=== PATIENT | male | born 1945 | race Caucasian/White ===

== ENCOUNTER → 2023-09-13 11:05 | Outpatient (REF) | payer MEDICARE, OTHER, SELFPAY | LOC: MRI 3T 11:05 | PROVIDERS: ATTENDING PHYSICIAN Orthopaedic Surgery; FAMILY PHYSICIAN Internal Medicine | DX: M54.16 Radiculopathy, lumbar region (principal) | CPT/HCPCS: 72148 ==

== ENCOUNTER → 2023-10-06 17:16 | Outpatient (REF) | payer MEDICARE, OTHER, SELFPAY | LOC: RAD 17:16 | PROVIDERS: ATTENDING PHYSICIAN Orthopaedic Surgery; FAMILY PHYSICIAN Internal Medicine | DX: M25.552 Pain in left hip (principal); M79.605 Pain in left leg; M79.662 Pain in left lower leg | CPT/HCPCS: 93971 ==

== ENCOUNTER → 2023-11-30 09:29 | Outpatient (REF) | payer MEDICARE, OTHER, SELFPAY ==
[2023-11-30 12:16] LABS: % Basophils 0.6 % (0-2); % Eosinophils 8.7 % (0-6); % Immature Granulocytes 0.2 % (0-0.5); % Lymphocytes 22.5 % (20.5-51.1); % Monocytes 10.5 % (1.7-9.3); % Neutrophils 57.5 % (42.2-75.2); Absolute Eosinophils 0.4 10^3/uL (0-0.7); Absolute Lymphocytes 1.1 10^3/uL (1.2-3.4); Absolute Monocytes 0.5 10^3/uL (0.1-0.6); Absolute Neutrophils 2.8 10^3/uL (1.4-6.5); Hematocrit 37.6 % (39.0-52.0); Hemoglobin 12.6 g/dL (13.0-18.0); Mean Corp Hgb Conc. 33.5 g/dL (33.0-37.0); Mean Corpuscular Hgb 31.9 pg (27.0-31.0); Mean Corpuscular Volume 95.2 fL (80.0-94.0); Mean Platelet Volume 9.7 fL (7.4-10.4); Nucleated Red Blood Cells % 0 % (-); Platelet Count 148 10^3/uL (130-400); Red Blood Cell Count 3.95 10^6/uL (4.70-6.10); Red Cell Dist. Width 14.2 % (11.5-14.5); White Blood Cell Count 4.9 10^3/uL (4.8-10.8)
[2023-11-30 12:22] LABS: INR 0.99; PT 13.1 Sec (11.4-14.6)
[2023-11-30 12:41] LABS: ALT (SGPT) 32 U/L (0-50); AST (SGOT) 55 U/L (17-59); Albumin 4.1 g/dl (3.5-5.0); Alkaline Phosphatase 158 U/L (38-126); Blood Urea Nitrogen 29 mg/dl (9-20); Calcium 9.9 mg/dl (8.4-10.2); Carbon Dioxide 23 mmol/L (22-30); Chloride 104 mmol/L (98-107); Glucose 88 mg/dl (70-99); HDL Cholesterol 34 mg/dl; LDL Cholesterol, Calculated 58 mg/dl; Potassium 4.5 mmol/L (3.5-5.1); Sodium 139 mmol/L (135-145); Total Bilirubin 0.6 mg/dl (0.2-1.3); Total Cholesterol 134 mg/dl (50-199); Total Protein 6.4 g/dl (6.3-8.2); Triglyceride 212 mg/dl (10-149); Very Low Density Lipoprotein 42 mg/dl (0-30); eGFR 51.77
[2023-11-30 13:07] LABS: PSA, Total - Diagnostic 2.99 ng/ml (0.0-4.0)
[2023-11-30 23:41] LABS: IgA 207 mg/dl (70-400)
[2023-12-01 20:31] LABS: AFP Male/Tumor Marker 5.95 ng/ml
[2023-12-02 17:58] LABS: Endomysial IgA Antibody Titer <1:10 (<1:10)
== END ==
LOC: HWLAB 09:29
PROVIDERS: ATTENDING PHYSICIAN Internal Medicine Gastroenterology; FAMILY PHYSICIAN Internal Medicine
DX: K74.69 Other cirrhosis of liver (principal); K90.0 Celiac disease; I10 Essential (primary) hypertension; E78.2 Mixed hyperlipidemia; N40.0 Benign prostatic hyperplasia without lower urinary tract symptoms
CPT/HCPCS: 36415; 80053; 80061; 82105; 82784; 83516; 84153; 85025; 85610; 86231

== ENCOUNTER → 2024-01-20 14:05 | Outpatient (REF) | payer MEDICARE, OTHER, SELFPAY | LOC: PAVMRI 14:05 | PROVIDERS: ATTENDING PHYSICIAN Internal Medicine Gastroenterology; FAMILY PHYSICIAN Internal Medicine | DX: K74.69 Other cirrhosis of liver (principal) | CPT/HCPCS: 74183; A9575 ==

== ENCOUNTER 2024-01-22 14:09 | Inpatient (IN) | payer MEDICARE, OTHER, SELFPAY ==
[2024-01-22] VITALS (36 sets, daily range): BP systolic 90–191; BP diastolic 50–103; BMI 25.3; BMI 25.0
--- NOTE | 2024-01-22 08:29 | ED.GENMED ---
History of Present Illness
General
Chief Complaint: Chest Pain
Source: patient
Exam Limitations: none
Time Seen by Provider: 01/22/24 07:49
Nursing documentation reviewed up to this point in time: agreed with
History of Present Illness
History of Present Illness:
78-year-old male past medical history of heart disease status post multiple stents, remote history of PE 15 years ago presenting to the emergency department today with concerns of central chest pressure starting last night without significant
associated shortness of breath nausea vomiting diaphoresis. Slightly worse with exertion today. Denies any recent trauma surgery immobilization, leg swelling.
Past History
Past History
ED Past Medical History: CAD, HTN, Hypercholesterolemia and Other (BPH, osteoarthritis, pancreatitis, pulmonary embolism 2013)
ED Past Surgical History: Cardiac (Cardiac stents) and Other (Facial fracture surgery, spinal fusion in 1992, and 1994, cardiac catheterization with stent placement in August of 2011, hemorrhoid surgery); Negative Appendectomy or Bowel resection
Social History
Tobacco: Former smoker
Alcohol: Occasional
Drug: None
Personal:
Living: with family
Employment: Employed
Family History
Family History: Other (Noncontributory)
Review of Systems
Review of Systems
Allergies reviewed?: Yes
All Other Systems: ROS reviewed and negative except as documented in HPI and ROS
Phy Exam
Physical Exam
Physical Exam:
GENERAL: Alert , in no apparent distress
EYE: pupils equal and reactive
NECK: Supple, no significant adenopathy.
ENT: o/p clr, mmm.
CARDIAC: Regular rate and rhythm .
LUNGS: Clear breath sounds bilaterally, no acute respiratory distress, no wheezes/rales/rhonchi
ABDOMEN: Soft, without focal tenderness, no r/g, no cvat
NEUROLOGICAL: Alert and oriented, no focal neuro deficits
SKIN: Warm and dry, skin intact.
MUSCULOSKELETAL: No edema, well perfused.
PSYCH: Normal and appropriate interaction.
Scores
Heart Score for Chest Pain Patients
STEMI patient?: No
History: Slightly or Non-Suspicious
ECG: Normal
Age: </= 45 years
Risk Factors: No Risk Factors
Troponin: </= Normal Limit
Heart Score for Chest Pain Patients: 0
Heart Score Risk: 2.5% MACE over next 6 weeks
Course
Orders/Labs/Results
Orders:
Orders
01/22/24 07:29
Electrocardiogram (*1) Urgent
Reason for Study: Chest Pain
EKG- Treatment ONCE
01/22/24 08:04
CR Chest - 2 Views Urgent
Comment:
Reason For Exam: cp
01/22/24 08:23
Complete Blood Count/With Diff Urgent
Comprehensive Metabolic Panel Urgent
D-Dimer Urgent
Lipase Urgent
Magnesium Urgent
Troponin I Urgent
01/22/24 09:31
Aspirin 162 mg PO NOW STA
01/22/24 10:31
Electrocardiogram (*1) Urgent
Reason for Study: Chest Pain
EKG- Treatment ONCE
Troponin I Urgent
01/22/24 10:32
Nitroglycerin Sublingual [Nitrostat (Sublingual)] 0.4 mg SL [id number] PRN
01/22/24 12:30
Morphine Sulfate 4 mg IV NOW STA
01/22/24 12:43
Electrocardiogram (*1) Urgent
Reason for Study: Chest Pain
EKG- Treatment ONCE
01/22/24 12:58
CT Chest Angio W/wo Iv Contras Urgent
Comment:
Reason For Exam: chest pain prgressive in ER, severe,
01/22/24 13:30
Admit/Transfer Patient As Directed
Co-Sign Provider:
Level of Care: Observation services
Assign to:: IVU
Physician / Group: barb
Diagnosis: unstable angina
PRN Pain Medication Management As Directed
May give lesser potent ordered pain med per pt: Yes
preference::
Protocol:: Medication orders for pain may be administered in a
manner that supports deferring to patient preference
when the pt is:
- Requesting an ordered lesser potent pain medication.
Least to most potent pain medications are defined
as: acetaminophen < NSAID < tramadol < opioids
(morphine, oxycodone, hydromorphone).
- Requesting a lesser dose of the same medication IF
ORDERED.
- Requesting a less intrusive route of administration
if both routes are prescribed by the provider (PO <
IV).
01/22/24 13:31
Code Status As Directed
Resuscitation Status: Full Code
01/22/24 13:34
Heparin 4,000 units IV NOW STA
Morphine Sulfate 1 mg IV Q4HPRN PRN
Heparin Protocol- PTT Orders As Directed
PTT per Heparin protocol: -Obtain CBC and baseline PTT - if not already collected.
-Obtain PTT 6 hours from start of infusion. Then, every 6 hours until 2 consecutive
PTT's are therapeutic. Then, PTT Daily.
-With each rate change, obtain PTT every 6 hours until 2 consecutive PTT's are
therapeutic. Then, PTT Daily.
Notify MD As Directed
Notify physician if: PTT is greater than or equal to 200.
01/22/24 13:41
Morphine Sulfate 4 mg IV Q6HPRN PRN
01/22/24 13:43
CARDIOLOGY CONSULT Routine
Consulting Provider: Tulio Underwood
Was physician already notified: Yes
01/22/24 13:45
Heparin 92381 Units/250 ml 25,000 units in 250 ml IV PER PROTOCOL
Weight to be used for heparin protocol in kilograms (kg):: 75.6
Protocol:: Cardiac Tx/Acute Coronary
PTT Goal Range to be used:: PTT 73 to 111 seconds
Order type:: Initial
INITIAL Infusion Dose (UNITS/KG/hr) & then follow protocol:: 12 units/kg/hr
Infusion Dose in UNITS/hr & then follow protocol (UNITS/hr):: 900
INFUSION RATE in mL/hr & then follow protocol (mL/hr):: 9
PTT less than or equal to 64 seconds:: Increase rate by 200 units/hr (+ 2 mL/hr)
PTT 64.1 to 72.9 seconds:: Increase rate by 100 units/hr (+ 1 mL/hr)
PTT 73 to 111 seconds:: Target Range. No change in rate.
PTT 111.1 to 130.9 seconds:: Decrease rate by 100 units/hr (- 1 mL/hr)
PTT 131 to 199.9 seconds:: HOLD for 1 hr. Then decrease rate by 200 units/hr (- 2 mL/hr)
PTT greater than or equal to 200 seconds:: HOLD for 2 hrs & Notify Provider. Then decrease by 200 units/hr (-
2 mL/hr)
Lab follow-up:: Each change, PTT q6h until 2 consecutive are therapeutic. Then PTT
daily.
Morphine Sulfate 4 mg .ROUTE .STK-MED ONE
Morphine Sulfate 4 mg IV NOW STA
Nitroglycerin 100 mg/250 ml [Nitroglycerin Premix] 100 mg in 250 ml IV PER PROTOCOL
Initial dose in mcg/min, then titrate:: 5
Titrate to keep:: Chest Pain Free
Titrate by mcg/min:: 5 mcg/min, may increase by 10 mcg/min if dose > 20 mcg/min
Frequency of titrations (minutes):: every 3-5 minutes
Maximum dose in mcg/min:: 200
Begin to taper infusion when:: Remained at goal for 2hrs
Taper by mcg/min:: 5 mcg/min
Frequency of taper (minutes) if patient maintains goal:: 30
Taper to off?: Yes
If infusion off & no longer maintaining goal:: Contact Provider
11/17/24 13:55
Diphenhydramine [Benadryl] 50 mg IV NOW STA
Hydrocortisone Sod Succinate [Solu-Cortef] 200 mg IV NOW STA
01/22/24 14:20
PTT Urgent
Comment: Obtain baseline before beginning heparin infusion if not already collected
Prothrombin Time Urgent
Is patient on Coumadin/Warfarin?: Unknown
Comment: ADD ON
01/22/24 14:30
Complete Blood Count/No Diff Urgent
Comment: Obtain baseline before beginning heparin infusion if not already collected
01/24/24 06:00
Complete Blood Count/No Diff Q2D
Comment: Notify MD if platelet count is <130,000 or decreases by 50% from baseline
01/26/24 06:00
Complete Blood Count/No Diff Q2D
Comment: Notify MD if platelet count is <130,000 or decreases by 50% from baseline
01/28/24 06:00
Complete Blood Count/No Diff Q2D
Comment: Notify MD if platelet count is <130,000 or decreases by 50% from baseline
01/30/24 06:00
Complete Blood Count/No Diff Q2D
Comment: Notify MD if platelet count is <130,000 or decreases by 50% from baseline
02/01/24 06:00
Complete Blood Count/No Diff Q2D
Comment: Notify MD if platelet count is <130,000 or decreases by 50% from baseline
02/03/24 06:00
Complete Blood Count/No Diff Q2D
Comment: Notify MD if platelet count is <130,000 or decreases by 50% from baseline
02/05/24 06:00
Complete Blood Count/No Diff Q2D
Comment: Notify MD if platelet count is <130,000 or decreases by 50% from baseline
02/07/24 06:00
Complete Blood Count/No Diff Q2D
Comment: Notify MD if platelet count is <130,000 or decreases by 50% from baseline
Abnormal Lab Results
01/22/24
08:23
RBC 3.92 L 10^6/uL
(4.70-6.10)
Hgb 12.9 L g/dL
(13.0-18.0)
Hct 38.6 L %
(39.0-52.0)
MCV 98.5 H fL
(80.0-94.0)
MCH 32.9 H pg
(27.0-31.0)
Absolute Lymphs (auto) 0.8 L 10^3/uL
(1.2-3.4)
Absolute Monos (auto) 0.8 H 10^3/uL
(0.1-0.6)
Lymphocytes % 11.4 L %
(20.5-51.1)
Monocytes % 11.1 H %
(1.7-9.3)
Eosinophils % 7.2 H %
(0-6)
D-Dimer 0.56 H ug/mlFEU
(0.00-0.50)
BUN 23 H mg/dl
(9-20)
Alkaline Phosphatase 157 H U/L
(38-126)
01/22/24 08:23
01/22/24 08:23
Vital Signs
Initial and Last Documented VS:
Initial Vital Signs
Temp Pulse Resp BP Pulse Ox
97.8 F 56 18 158/74 100
01/22/24 07:32 01/22/24 07:32 01/22/24 07:32 01/22/24 07:32 01/22/24 07:32
Last Documented Vital Signs
Temp Pulse Resp BP Pulse Ox
97.8 F 82 18 103/62 100
01/22/24 07:32 01/22/24 15:10 01/22/24 07:32 01/22/24 15:10 01/22/24 07:32
MDM/Problems Addressed
MDM/Problems Addressed:
78-year-old male presenting to the emergency department today with concerns of central chest heaviness since last night. No associated shortness of breath nausea vomiting worse with exertion. Has had some intermittent symptoms similar with
exertion over the past few weeks. On arrival here blood pressure slightly elevated otherwise vital signs are normal. EKG unchanged but did have occasional PVCs. Initial labs unremarkable D-dimer below age-adjusted cut off. Second troponin
negative EKG repeated multiple times in the ER also negative patient did have progressive symptoms while here in the ER claims that the symptoms are severe considering the CT scan was ordered to rule out possible dissection. CT without emergent
findings. Did show significant coronary calcifications patient was admitted to the hospital pending further assessment from cardiology
*Critical Care Note
Total Time (30-74mins, 75-104mins- exclusive of procedures): Not Applicable
ED Attending Note
-
Portions of this chart may have been created with voice recognition software.� Occasional wrong word or��sound alike� substitutions may have occurred due to the inherent limitations of voice recognition software.
Discharge Plan
Departure
Patient Disposition: Admit
Date of Disposition: 01/22/24
Time of Disposition: 15:25
Admit to: Telemetry
Admit to doctor: Barb
Presentation/result/management discussed w/ accepting MD/DO: Hospitalist
Patient with high blood pressure during this ER visit?: No
Condition: Fair
Covid-19: Not Applicable
Discharge Problem:
Chest pain
Interventions
Interventions:
*Risk Screen - Suicide Last Done: 01/22/24 07:32
*General Assessment Last Done: 01/22/24 07:32
*Neglect/Abuse Screening Last Done: 01/22/24 07:32
ED- Fall Risk Assessment Last Done: 01/22/24 07:52
*ED COVID-19 Vaccine History Last Done: 01/22/24 07:32
ED- Cardiac Assessment Last Done: 01/22/24 07:52
[2024-01-22 08:40] LABS: % Basophils 0.4 % (0-2); % Eosinophils 7.2 % (0-6); % Immature Granulocytes 0.3 % (0-0.5); % Lymphocytes 11.4 % (20.5-51.1); % Monocytes 11.1 % (1.7-9.3); % Neutrophils 69.6 % (42.2-75.2); Absolute Eosinophils 0.5 10^3/uL (0-0.7); Absolute Lymphocytes 0.8 10^3/uL (1.2-3.4); Absolute Monocytes 0.8 10^3/uL (0.1-0.6); Hematocrit 38.6 % (39.0-52.0); Hemoglobin 12.9 g/dL (13.0-18.0); Mean Corp Hgb Conc. 33.4 g/dL (33.0-37.0); Mean Corpuscular Hgb 32.9 pg (27.0-31.0); Mean Corpuscular Volume 98.5 fL (80.0-94.0); Mean Platelet Volume 9.5 fL (7.4-10.4); Nucleated Red Blood Cells % 0 % (-); Platelet Count 151 10^3/uL (130-400); Red Blood Cell Count 3.92 10^6/uL (4.70-6.10); Red Cell Dist. Width 13.4 % (11.5-14.5); White Blood Cell Count 7.2 10^3/uL (4.8-10.8)
[2024-01-22 08:44] LABS: ALT (SGPT) 32 U/L (0-50); AST (SGOT) 54 U/L (17-59); Albumin 4.4 g/dl (3.5-5.0); Alkaline Phosphatase 157 U/L (38-126); Blood Urea Nitrogen 23 mg/dl (9-20); Calcium 9.9 mg/dl (8.4-10.2); Carbon Dioxide 23 mmol/L (22-30); Chloride 104 mmol/L (98-107); Estimated Creatinine Clearance 50 ml/min; Glucose 92 mg/dl (70-99); Lipase 64 U/L (23-300); Magnesium 2.1 mg/dl (1.6-2.3); Potassium 4.6 mmol/L (3.5-5.1); Sodium 139 mmol/L (135-145); Total Bilirubin 0.7 mg/dl (0.2-1.3); Total Protein 6.8 g/dl (6.3-8.2); eGFR > 60.00
[2024-01-22 08:51] LABS: D-Dimer 0.56 ug/mlFEU (0.00-0.50)
[2024-01-22 08:56] LABS: Troponin I < 0.012 ng/ml
[2024-01-22] MEDS: ASPIRIN 162 MG PO (09:37)
[2024-01-22] MEDS: NITROSTAT (SUBLINGUAL) 0.4 MG SL (10:36)
[2024-01-22 11:03] LABS: Troponin I < 0.012 ng/ml
[2024-01-22] MEDS: MORPHINE SULFATE 4 MG IV ×2 (12:38→13:48)
--- NOTE | 2024-01-22 13:37 | HPS.HSE ---
Family Physician
-
Family Physician: Michael Pardo
Chief Complaint
-
chest pain
History of Present Illness
78-year-old male past medical history of CAD status post angioplasty in 2021, circumflex stent x 2 in 2011, hypertension, hyperlipidemia, DVT/pulmonary embolism in 2013, giant arteritis, pancreatitis, gallstones, Kapoor's esophagus, spinal fusion,
BPH, presenting to the emergency room for central chest pressure starting last night. Pain is described as elephant sitting on his chest. Pain came on without any exertion while he was watching TV. He denies any shortness of breath, nausea
vomiting or diaphoresis.
He has been having episodes of chest pressure with exertion over the past few month which relieved with rest.
He recently had cholecystectomy for gallstones. He was found to have pancreatic cyst. He also has a history of Kapoor's esophagus but symptoms of GERD are well-controlled on PPI.
He smokes 4 years ago. He drinks alcohol occasionally.
Medical History
Past Medical History
Past Medical History: Reports Other (CAD status post angioplasty in 2021, circumflex stent x 2 in 2011, hypertension, hyperlipidemia, DVT/pulmonary embolism in 2013, giant arteritis, pancreatitis, gallstones, Kapoor's esophagus, spinal fusion, BPH)
Past Surgical History: Reports Other (Cardiac (Cardiac stents) and Other (Facial fracture surgery, spinal fusion in 1992, and 1994, cardiac catheterization with stent placement in August of 2011, hemorrhoid surgery), cholecystectomy )
Social History
Tobacco: Former Smoker
Alcohol: Occasional
Drug: None
Family History
Family History: Not pertinent
Allergies / Home Medications
Allergies reflects when Allergies were last updated in [employer].
Home Medications with original date entered in [employer]
Allergy/Medication List:
Allergies
Allergy/AdvReac Type Severity Reaction Status Date / Time
Iodinated Contrast Media Allergy Rash Verified 01/22/24 07:36
[IV Dye, Iodine Containing
Contrast ]
iodine Allergy Rash Verified 01/22/24 07:36
Home Medications
aspirin 81 mg chewable tablet 81 mg PO DAILY ##0 06/02/14
rosuvastatin 40 mg tablet (Crestor) 40 mg PO HS High cholesterol 12/15/14
omega-3s 600 eg-zks-ogv-other [id number] oil 1,200 mg capsule 1,200 mg PO DAILY Supplement 12/08/15
metoprolol succinate 50 mg tablet,extended release 24 hr 50 mg PO DAILY Blood pressure 05/29/18
trazodone 50 mg tablet 50 mg PO HS Mental Health/Anxiety 05/29/18
Ergocalciferol (Vitamin D2) [Vitamin D2] 1,250 mcg PO DAILY Supplement 03/25/21
Vit C/E/Zn/Coppr/Lutein/Zeaxan [Preservision Areds 2 Chew Tab] 1 ea PO BID Supplement 03/25/21
amlodipine 5 mg tablet 5 mg PO DAILY Blood pressure 03/25/21
losartan 100 mg tablet 100 mg PO DAILY Blood pressure 03/25/21
pediatric multivitamin-Fl 0.25 mg chewable tablet 0.25 mg PO DAILY Supplement 03/25/21
sucralfate 1 gram tablet (Carafate) 1 gm PO BID Gastrointestinal issue 03/25/21
vitamin E acetate 134 mg (200 unit) capsule 160 mg PO DAILY Supplement 03/25/21
clopidogrel 75 mg tablet 75 mg PO DAILY #30 tabs 03/26/21
ezetimibe 10 mg tablet 10 mg PO DAILY #30 tabs 03/26/21
pantoprazole 40 mg tablet,delayed release 40 mg PO BID #60 tabs 03/26/21
isosorbide mononitrate 60 mg tablet,extended release 24 hr 60 mg PO DAILY Heart disease/condition #30 tabs 03/30/21
Review of Systems
-
History Source: Patient
A 12 point ROS was completed and negative except as noted: Yes
Constitutional: Reports No Symptoms
EENT: Reports No Symptoms
Respiratory: Reports No Symptoms
Cardiac: Reports See HPI
Abdomen/GI: Reports No Symptoms
: Reports No Symptoms
Musculoskeletal: Reports No Symptoms
Skin: Reports No Symptoms
Neurological: Reports No Symptoms
Endocrine: Reports No Symptoms
Hematologic/Lymphatic: Reports No Symptoms
Psych: Reports No Symptoms
Physical Exam
Vital Signs
Vital Signs
Temp Pulse Resp BP Pulse Ox
97.8 F 60 18 152/72 100
01/22/24 07:32 01/22/24 12:45 01/22/24 07:32 01/22/24 12:00 01/22/24 07:32
Physical Exam
General: Well Developed, Well Nourished and No Apparent Distress
HEENT: NormoCephalic, Moist mucous membranes and Atraumatic
Respiratory: Clear
Cardiac: S1/S2 and Regular Rhythm; No Murmur or Rub
GI: Soft, Non Tender, Non Distended and Normal Bowel Sounds; No Organomegaly
Rectal: Deferred by Provider
Musculoskeletal: No Clubbing, No Cyanosis and No Edema
Skin: No Rash
Neuro: Nonfocal/grossly intact
Laboratory Results
-
01/22/24 08:23
Laboratory Results
Total Bilirubin 0.7 mg/dl (0.2-1.3) 01/22/24 08:23
AST 54 U/L (17-59) 01/22/24 08:23
ALT 32 U/L (0-50) 01/22/24 08:23
Alkaline Phosphatase 157 U/L (38-126) H 01/22/24 08:23
Troponin I < 0.012 ng/ml 01/22/24 10:31
Lipase 64 U/L (23-300) 01/22/24 08:23
Data Reviewed
-
Lab Data: Labs Reviewed by me
Old Records: Reviewed
Impression/Plan
-
IMPRESSION:
PLAN:
# Chest pressure likely unstable angina versus rule out PE versus
# History of CAD status post angioplasty LAD in 2021, circumflex stents x 2 in 2011
-D-dimer 0.[address] PE
-Troponin negative
-EKG shows normal sinus rhythm, left axis deviation,
-Trend troponins
-Aspirin, morphine, nitroglycerin given without improvement
-Continue aspirin and Plavix
-Start nitroglycerin drip, heparin drip
-Continue morphine
-Hold isosorbide mononitrate
-Continue metoprolol
-Check echo
-Cardiology consulted
Essential hypertension
-Continue amlodipine, losartan
Hyperlipidemia
-Continue Zetia, statin
History of DVT/pulm embolism 2013
History of giant cell arteritis
History of pancreatic cyst
History of gallstones status post cholecystectomy
Kapoor's esophagus/GERD
-Denies any acid reflux symptoms has been controlled with PPI
-continue protonix, sucralfate
Spinal fusion
BPH
Full code
DVT prophylaxis�heparin
Regular diet
[2024-01-22] MEDS: BENADRYL 50 MG IV (14:10)
[2024-01-22] MEDS: NITROGLYCERIN PREMIX 250 IV (14:22)
[2024-01-22] MEDS: SOLU-CORTEF 200 MG IV (14:22)
[2024-01-22] MEDS: HEPARIN 4000 UNITS IV (14:32)
[2024-01-22] MEDS: HEPARIN 25000 UNITS/250 ML IV (14:35)
[2024-01-22 14:38] LABS: Hematocrit 37.2 % (39.0-52.0); Hemoglobin 12.8 g/dL (13.0-18.0); Mean Corp Hgb Conc. 34.4 g/dL (33.0-37.0); Mean Corpuscular Hgb 33.2 pg (27.0-31.0); Mean Corpuscular Volume 96.6 fL (80.0-94.0); Mean Platelet Volume 9.5 fL (7.4-10.4); Platelet Count 144 10^3/uL (130-400); Red Blood Cell Count 3.85 10^6/uL (4.70-6.10); Red Cell Dist. Width 13.5 % (11.5-14.5); White Blood Cell Count 8.2 10^3/uL (4.8-10.8)
[2024-01-22 14:38] LABS: APTT 32.1 Sec (23.4-35.0)
[2024-01-22 14:40] LABS: INR 1.02; PT 13.7 Sec (11.4-14.6)
--- NOTE | 2024-01-22 15:45 | PTCARENOTE ---
Received pt from ED, AOx3 with complaints of 7/[address] Underwood made aware. Oriented to room and unit. Call morrow within reach.
[2024-01-22 16:28] LABS: Troponin I < 0.012 ng/ml
[2024-01-22] MEDS: MAALOX 20 ML PO (16:52)
--- NOTE | 2024-01-22 17:29 | CON.CAR ---
Consultation
Consultation Request
Date/Time Consultation Requested: 01/22/2024 13: 00
Date/Time Consultation Performed: 01/22/2024 16: 30
Requesting Provider: Kaiden
Performing Provider: Yasmine
Reason for Consultation: chest pain
Medical History
-
Chief Complaint: Chest pain
History of Present Illness:
Javan has a history of CAD status post 2 overlapping drug-eluting stents to the mid left circumflex as well as angioplasty without stent of the apical LAD in 2021, hypertension, giant cell arteritis, hypercholesterolemia, pulm embolism.
He presents with complaints of chest discomfort. Of note he has had chest discomfort for the last 3 to 4 months. This is described as a chest pressure. He noted chest discomfort the past 2 days. His chest pain was very sharp worse with taking
deep breath. Was not related to burping or eating food. Pain worse and came to the ER. He has had chest pain for almost 24 hours with 3 negative troponins so far. Note the pain is worse with taking a deep breath. There was no change with
nitroglycerin
Past Medical History
Past Medical History: Other (CAD with 2 stents in circumflex in 2011 as well as PTCA of distal LAD in 2021, hypertension, giant cell arteritis, pulmonary embolism, hypercholesterolemia, GERD with Kapoor's esophagus with endoscopic ablation. He has
a history of cirrhosis and pancreatitis.)
Past Surgical History: Other (Spinal fusion, left cataract surgery, stent, biopsy of arteries in [place], facial fracture)
Social History
Tobacco: Former Smoker
Alcohol: Occasional
Drug: None
Personal:
Living: Alone
Employment: Retired (Retired [employer])
Family History
Family History: Other (Father hypertension, mother of coronary artery disease)
Allergies / Home Medications
Allergy/AdvReac Type Severity Reaction Status Date / Time
Iodinated Contrast Media Allergy Rash Verified 01/22/24 07:36
[IV Dye, Iodine Containing
Contrast ]
iodine Allergy Rash Verified 01/22/24 07:36
�Medication �Instructions �Recorded �Confirmed �Type
aspirin 81 mg chewable tablet 81 mg PO DAILY ##0 06/02/14 01/22/24 Rx
rosuvastatin 40 mg tablet (Crestor) 40 mg PO HS High cholesterol 12/15/14 01/22/24 History
omega-3s 600 yv-xpk-jbp-other 1 cap PO DAILY Supplement 12/08/15 01/22/24 History
lhhqr6n-[id number] oil 1,200 mg capsule
metoprolol succinate 50 mg 50 mg PO DAILY Blood pressure 05/29/18 01/22/24 History
tablet,extended release 24 hr
trazodone 50 mg tablet 50 mg PO HS Mental Health/Anxiety 05/29/18 01/22/24 History
cholecalciferol (vitamin D3) 125 125 mcg PO DAILY Supplement ##0 03/25/21 01/22/24 History
mcg (5,000 unit) tablet
losartan 100 mg tablet 100 mg PO DAILY Blood pressure 03/25/21 01/22/24 History
vit C 250 mg-vit E 90 mg-zinc 40 1 tab PO BID Supplement ##0 03/25/21 01/22/24 History
mg-copper 1 [id number]-kpnzje
capsule (PreserVision AREDS-2)
vitamin E acetate 134 mg (200 160 mg PO DAILY Supplement 03/25/21 01/22/24 History
unit) capsule
clopidogrel 75 mg tablet 75 mg PO DAILY #30 tabs 03/26/21 01/22/24 Rx
pantoprazole 40 mg tablet,delayed 40 mg PO BID #60 tabs 03/26/21 01/22/24 Rx
release
tadalafil 20 mg tablet (Cialis) 20 mg PO DAILYPRN PRN ed 01/22/24 01/22/24 History
Review of Systems
-
History Source: Patient
All other systems: Negative unless noted
Constitutional: No Symptoms
EENT: No Symptoms
Respiratory: No Symptoms
Cardiac: Chest Pain
Abdomen/GI: No Symptoms
: No Symptoms
Musculoskeletal: No Symptoms
Skin: No Symptoms
Neurological: No Symptoms
Endocrine: No Symptoms
Hematologic/Lymphatic: No Symptoms
Physical Exam
Vital Signs
Temp Pulse Resp BP Pulse Ox
98.3 F 105 22 116/68 98
01/22/24 16:10 01/22/24 17:00 01/22/24 16:10 01/22/24 17:00 01/22/24 16:10
Lab Results
01/22/24 14:30
01/22/24 08:23
Troponin I < 0.012 ng/ml 01/22/24 15:50
General: Well developed, well nourished in NAD.
Neck: Supple, no JVD, HJR, carotids +2 B/L, no bruits bilaterally.
Heart: Non displaced PMI, RRR, no murmurs, No S3, S4, no rubs.
Lungs: Clear to auscultation bilaterally, no wheeze, rhonchi, rubs bilaterally,
normal expiratory phase.
Abdomen: Normal bowel sounds, soft, non-tender, non-distended.
Extremities: No clubbing, cyanosis or edema bilaterally.
Neuro: Grossly nonfocal, awake, alert and oriented x3.
Impression / Plan
-
Impression:
Chest discomfort
History of 2 stents to the circumflex in 2011 and PTCA of distal LAD in 2021
History of giant cell arteritis
Hypertension
Hypercholesterolemia
GERD with Kapoor's esophagus
History of pancreatitis
History of cirrhosis
History of pulm embolus
Echocardiogram 10/13/2022: Ejection fraction 50 to 55%
Catheterization March 2021: Single-vessel CAD of the apical LAD with patent circumflex stents, PTCA of distal LAD
Plan:
He has had essentially continuous chest discomfort for almost 24 hours with 3 undetectable troponins and stable ECG
Maalox was given with perhaps some relief
There has been no relief with nitroglycerin or heparin
Suspicion for active CAD is low although he describes symptoms of chest discomfort with exertion while walking his dog that may be consistent with angina
Some of his symptoms are consistent with pericarditis given worsened with taking a deep breath and severe stabbing pain
CT was negative for dissection
Will continue to follow troponins
Will try a dose of Toradol to see if there is any response for possible pericardial
Will check echocardiogram
Continue IV nitroglycerin and IV heparin for now. Might consider catheterization based on his symptoms of exertional discomfort while walking his dog. Of note he has been intolerant to Imdur in the past with dizziness
Discussed in detail with family at bedside
Data Reviewed
-
EKG: Tracing Personally Visualized and interpreted
Radiology: Report Reviewed by me
CT Scan: Report Reviewed by me
Medical Tests (Nuc Med, Echo etc): Report Reviewed by me
Labs: Labs Reviewed by me
Old Records: Reviewed
[2024-01-22] MEDS: TORADOL 15 MG IV (17:55)
[2024-01-22] MEDS: PROTONIX 40 MG PO (19:21)
--- NOTE | 2024-01-22 20:22 | PTCARENOTE ---
Received patient at change of shift. Patient sitting in bed-- awake, alert, and oriented. Currently 3/10 chest pain. Heparin gtt running @ 900 units/mL and nitro gtt running @ 20 mcgs/min through left hand IV. BP 102/57, NSR 70s with PVCs, 95% on 2L
NC. Discussed plan of care for evening. Patient verbalized understanding and agreed to call nurse with any change or worsening chest pain. Call morrow within reach.
[2024-01-22 21:43] LABS: APTT 102.1 Sec (23.4-35.0)
[2024-01-22 21:51] LABS: Troponin I 0.016 ng/ml
[2024-01-23] VITALS (21 sets, daily range): BP systolic 89–153; BP diastolic 55–97
[2024-01-23 04:30] LABS: % Basophils 0.2 % (0-2); % Immature Granulocytes 0.4 % (0-0.5); % Monocytes 9.8 % (1.7-9.3); % Neutrophils 83.6 % (42.2-75.2); Absolute Lymphocytes 0.6 10^3/uL (1.2-3.4); Absolute Monocytes 0.9 10^3/uL (0.1-0.6); Absolute Neutrophils 7.9 10^3/uL (1.4-6.5); Hemoglobin 11.6 g/dL (13.0-18.0); Mean Corp Hgb Conc. 35.2 g/dL (33.0-37.0); Mean Corpuscular Hgb 33.4 pg (27.0-31.0); Mean Corpuscular Volume 95.1 fL (80.0-94.0); Mean Platelet Volume 10.3 fL (7.4-10.4); Nucleated Red Blood Cells % 0 % (-); Platelet Count 141 10^3/uL (130-400); Red Blood Cell Count 3.47 10^6/uL (4.70-6.10); Red Cell Dist. Width 13.6 % (11.5-14.5); White Blood Cell Count 9.5 10^3/uL (4.8-10.8)
[2024-01-23 04:45] LABS: APTT 90.7 Sec (23.4-35.0)
[2024-01-23 05:03] LABS: Troponin I < 0.012 ng/ml
[2024-01-23 05:09] LABS: ALT (SGPT) 27 U/L (0-50); AST (SGOT) 42 U/L (17-59); Albumin 3.5 g/dl (3.5-5.0); Alkaline Phosphatase 122 U/L (38-126); Blood Urea Nitrogen 32 mg/dl (9-20); Calcium 9.2 mg/dl (8.4-10.2); Carbon Dioxide 21 mmol/L (22-30); Chloride 103 mmol/L (98-107); Estimated Creatinine Clearance 46 ml/min; Glucose 132 mg/dl (70-99); Potassium 4.7 mmol/L (3.5-5.1); Sodium 135 mmol/L (135-145); Total Bilirubin 0.9 mg/dl (0.2-1.3); Total Protein 5.8 g/dl (6.3-8.2); eGFR 56.58
--- NOTE | 2024-01-23 07:55 | PTCARENOTE ---
Assumed care of pt from prev nsg shift; Pt AAOx3 w/no c/o Cp or SOB this AM. Pt w/VS w/HR in the 60's & BP this AM 114/63. Pt is SR w/freq PVC's on telemetry monitoring. Pt w/Nitro IV drip & Heparin IV drip infusing as ordered through patent IV
line. Pt eating breakfast but advised to not eat or drink anything after for poss cardiac cath today. Pt w/son & DIL at bedside. Pt w/call morrow within reach & plan of care ongoing.
--- NOTE | 2024-01-23 09:02 | W.PN.CARDCBS ---
Addendum entered and electronically signed by Codey Johnson DO 01/23/24 10:10:
I saw and examined the patient.
The Toll Lineman's note was reviewed and I agree with the note.
Comment:
Plan:
Pt with significant chest pain with neg trop and EKG. He remains on IV nitro and IV Heparin.
There are still several things in the differential. His 2 weeks ago and he could have consideration for Takotsubo cardiomyopathy.
He has had exertional symptoms over the last several months with walking his dog that her chest pressure like and similar to his previous angina. His last cath in 2021, he underwent balloon angioplasty of a distal apical LAD which was unable to be
stented. He had patent stents to the circumflex at that time. He could have progression of CAD
He also has some symptoms consistent with pericarditis and responded to Toradol.
Check echocardiogram to evaluate for structural heart disease and wall motion abnormality.
We discussed options with the patient and his family understand and agree with consideration to evaluate his coronary anatomy with cardiac catheterization; this is also their preference.
He understands his cardiac catheterization would be later today or potentially tomorrow morning.
If his coronary anatomy is stable, would continue anti-inflammatory treatment for potential pericarditis.
Cont DAPT and beta kane.
Original Note:
Today's Communication / Plan
-
Urgent bedside echo pending
Troponin undetectable and pain improved with Toradol, but separately having chest pain with exertion for the last 2 weeks since his
Likely cardiac cath later today, ate breakfast this AM
Impression / Plan
-
PCP: Dr. Michael Pardo
Cardiology: Dr. Johnson
Impression:
Chest pain on admission 01/22/24
CAD s/p Circumflex stents in 2011 and PTCA of distal LAD in 2021
Chronic DAPT therapy
History of giant cell arteritis
Hypertension
Hypercholesterolemia
GERD with Kapoor's esophagus
History of pancreatitis
History of cirrhosis
History of pulm embolus
Echo 10/13/2022: Ejection fraction 50 to 55%
Catheterization March 2021: Single-vessel CAD of the apical LAD with patent circumflex stents, PTCA of distal LAD
Echo 01/23/24: Study pending
Plan:
-Chest pain overnight when changing in the bathroom. Remains on Heparin gtt and Nitro gtt at 20 mcg.
-Troponin serially normal/undetectable
-Urgent bedside echo pending
-Patient reports crushing chest pain on admission that improved with Toradol, but also has been having exertional chest pain for the last 2 weeks. Chest pain with walking that is relieved by rest. Marilia's also 2 weeks ago and he
is grieving.
-Pending echo will plan on cardiac cath 01/23/24 vs 01/24/24. Patient already ate breakfast 01/23/24, now NPO
-Outpatient doses of aspirin 81 mg daily and Plavix 75 mg daily have been continued.
-Outpatient doses of Toprol XL 50 mg daily and losartan 100 mg daily have been continued.
HPI: Javan has a history of CAD status post 2 overlapping drug-eluting stents to the mid left circumflex as well as angioplasty without stent of the apical LAD in 2021, hypertension, giant cell arteritis, hypercholesterolemia, pulm embolism. He
presents with complaints of chest discomfort. Of note he has had chest discomfort for the last 3 to 4 months. This is described as a chest pressure. He noted chest discomfort the past 2 days. His chest pain was very sharp worse with taking deep
breath. Was not related to burping or eating food. Pain worse and came to the ER. He has had chest pain for almost 24 hours with 3 negative troponins so far. Note the pain is worse with taking a deep breath. There was no change with
nitroglycerin
Progress Note - Quality Analyst
Subjective
Date of Service: January 23, 2024
Chest pain while changing in the bathroom last night
Objective
Labs:
01/23/24 03:55
01/23/24 03:51
Labs
Hgb 11.6 g/dL (13.0-18.0) L 01/23/24 03:55
Hct 33.0 % (39.0-52.0) L 01/23/24 03:55
Plt Count 141 10^3/uL (130-400) 01/23/24 03:55
PT 13.7 Sec (11.4-14.6) 01/22/24 14:20
INR 1.02 01/22/24 14:20
APTT 90.7 Sec (23.4-35.0) H 01/23/24 03:51
Sodium 135 mmol/L (135-145) 01/23/24 03:51
Potassium 4.7 mmol/L (3.5-5.1) 01/23/24 03:51
BUN 32 mg/dl (9-20) H 01/23/24 03:51
Creatinine 1.3 mg/dL (0.7-1.3) 01/23/24 03:51
Glucose 132 mg/dl (70-99) H 01/23/24 03:51
Troponins
01/22/24 01/22/24 01/22/24
08:23 10:31 15:50
Troponin I < 0.012 < 0.012 < 0.012
01/22/24 01/23/24
21:15 03:55
Troponin I 0.016 D < 0.012 D
Vital Signs and I&O:
Vital Signs
Temp Pulse Resp BP Pulse Ox
98.4 F 72 20 114/63 94
01/23/24 07:23 01/23/24 07:30 01/23/24 07:23 01/23/24 07:25 01/23/24 07:25
Vital Signs
Temp Pulse Resp BP Pulse Ox
98.4 F 72 20 114/63 94
01/23/24 07:23 01/23/24 07:30 01/23/24 07:23 01/23/24 07:25 01/23/24 07:25
Intake & Output
01/21/24 01/22/24 01/23/24 01/24/24
06:59 06:59 06:59 06:59
Intake Total 180 / 180
Output Total 550 / 550
Balance -370 / -370
Physical Exam
Physical Exam
GEN: NAD. AAOx3
HEENT: EOMI
LUNGS: No audible wheeze
CV: SR on tele
ABD: ND
EXT: No edema B/L
NEURO: Gross non-focal
SKIN: No rash
--- NOTE | 2024-01-23 09:18 | CM ---
Reviewed chat. Met with Mrs. Montes and his daughter to review discharge plans. He states prior to admission he resides alone in a two story home with one step to enter. He states his spouse dies two weeks ago. He states he has a full flight of
steps to get to bedroom/full bathroom. He states he has a powder room on the first floor. He states prior to admission he was independent with ambulation and adls. He states he does not have any DME in the home. He states he has a prescription
plan and uses [facility]. The discharge plan is to return home when medically stable.
[2024-01-23] MEDS: VITAMIN E 300 UNITS PO (09:24)
[2024-01-23] MEDS: OCUVITE SOFTGEL 1 CAP PO ×2 (09:25→20:06)
[2024-01-23] MEDS: PLAVIX 75 MG PO (09:25)
[2024-01-23] MEDS: VITAMIN D3 (cholecalciferol) 125 MCG PO (09:25)
[2024-01-23] MEDS: TOPROL XL 50 MG PO (09:25)
[2024-01-23] MEDS: COZAAR 100 MG PO (09:25)
[2024-01-23] MEDS: PROTONIX 40 MG PO ×2 (09:25→20:06)
[2024-01-23] MEDS: LOW STRENGTH ASPIRIN 81 MG PO (09:25)
--- NOTE | 2024-01-23 09:37 | W.PN.HOSP.TC ---
Today's Communication/Plan
-
For cardiac catheterization today
Assessment / Plan
Assessment / Plan
HPI: 78-year-old male past medical history of CAD status post angioplasty in 2021, circumflex stent x 2 in 2011, hypertension, hyperlipidemia, DVT/pulmonary embolism in 2013, giant arteritis, pancreatitis, gallstones, Kapoor's esophagus, spinal
fusion, BPH, presenting to the emergency room for central chest pressure starting last night. Pain is described as elephant sitting on his chest. Pain came on without any exertion while he was watching TV. He denies any shortness of breath,
nausea vomiting or diaphoresis.
#Chest pain
#Coronary artery disease status post angioplasty
Chest CT negative for PE
Appreciate cardiology input, for cardiac catheterization today
Continue aspirin, Plavix, metoprolol, losartan, Crestor, nitroglycerin drip, s/p heparin drip
Essential hypertension
-Continue amlodipine, losartan
Hyperlipidemia
-Continue Zetia, statin
History of DVT/pulm embolism 2013
History of giant cell arteritis
History of pancreatic cyst
History of gallstones status post cholecystectomy
Kapoor's esophagus/GERD
-Denies any acid reflux symptoms has been controlled with PPI
-continue protonix, sucralfate
Spinal fusion
BPH
DVT prophylaxis�subcu Lovenox
Full code
Total time spent to see the patient on the floor, examine the patient, review data and lab results, discuss treatment plan with patient, nursing staff around 38 minutes.
Physical Exam
General: No acute distress
HEENT: Normocephalic, Atraumatic, EOMI, MMM
Respiratory: Clear to Auscultation bilaterally
Cardiac: Normal S1/S2, Regular Rate and Rhythm
GI: Soft, Nontender, Nondistended, Normal Bowel Sounds
Extremities: No Clubbing, Cyanosis, or Edema
Neuro: Nonfocal/Grossly Intact
Psych: Calm, Cooperative
Derm: No Visible lesions
Anticipated Discharge: Within 24 hours
Subjective/Interval History
-
Date of Service: January 23, 2024
Chest pain improved, currently 2 out of 10 in intensity. No shortness of breath. No fever, no vomiting.
Objective Data
-
Labs:
Laboratory Results
01/22/24 01/23/24 01/23/24
21:15 03:51 03:55
WBC 9.5
Hgb 11.6 L
Hct 33.0 L
Plt Count 141
APTT 102.1 H 90.7 H
Sodium 135
Potassium 4.7
Chloride 103
Carbon Dioxide 21 L
BUN 32 H
Creatinine 1.3
Glucose 132 H
Calcium 9.2
Total Bilirubin 0.9
AST 42
ALT 27
Alkaline Phosphatase 122
Vital Signs:
Vital Signs
Temp Pulse Resp BP Pulse Ox
98.4 F 72 20 114/63 94
01/23/24 07:23 01/23/24 07:30 01/23/24 07:23 01/23/24 07:25 01/23/24 07:25
I&O
01/22/24 01/23/24 01/24/24
06:59 06:59 06:59
Intake Total 180 / 180
Output Total 550 / 550
Balance -370 / -370
--- NOTE | 2024-01-23 11:28 | W.PN.UPDATE ---
Update Note
Progress Note Update
Stable EF by echo. Patient and family prefer cath this admission. Dye allergy described as a flushing and rash, but no anaphylaxis. Ate egg and cheese sandwich at 0730 this AM. Will given hydrocortisone 200 mg IV now and then diphenhydramine 50 mg
IV on-call to dental laboratory worker. Patient and daughter updated in room again and are in agreement with cath today.
[2024-01-23] MEDS: SOLU-CORTEF 200 MG IV (12:12)
[2024-01-23] MEDS: FLUSH (NSS) 2 FLUSH IV ×2 (12:13→13:10)
[2024-01-23] MEDS: BENADRYL 50 MG IV (13:10)
--- NOTE | 2024-01-23 13:15 | PTCARENOTE ---
Report to Eboni in the optical laboratory manager. This Rn administered IV Benadryl as ordered pre-cath. Pt transported to matlab developer in his bed. Plan of care ongoing.
[2024-01-23 14:09] LABS: ACT-LR - POC 244 Seconds (116-155)
[2024-01-23 14:19] LABS: ACT-LR - POC 314 Seconds (116-155)
[2024-01-23 14:59] LABS: ACT-LR - POC 314 Seconds (116-155)
--- NOTE | 2024-01-23 15:37 | ITS.CL.CATH ---
Clinical Coordinator - Catheterization
Cardiac Catheterization
Procedure Report:
LEFT HEART CATH AND CORONARY INTERVENTION
Date of Procedure: January 23, 2024
Referring: Dr. Codey Johnson
PROCEDURES:
1. Left heart catheterization with coronary angiography
2. Successful stenting of the mid LAD with a 3.0 x 26 mm Douglas stent that was implanted at nominal pressures and postdilated with a 3.0 mm noncompliant balloon at the distal and midportion of the stent and with a 3.5 mm noncompliant balloon in the
proximal portion of the stent
INDICATION: This is a 78-year-old gentleman with a prior history of coronary artery disease with overlapping stents in the mid circumflex and balloon angioplasty of the apical LAD. He presented to [facility] with exertional chest
discomfort that has been present for at least a year but may be worsening recently with resting symptoms. His troponin serially measured within normal limits, however, given the nature of his symptoms he is referred for coronary angiography.
ACCESS: Right radial artery, 6 [place] sheath
HEMODYNAMICS (mmHg):
AO (s/d, m) : 140/67, 96
LV (s/d) : 147/16
LVEDP : 23
CORONARY FINDINGS
Dominance: Right
LEFT MAIN: Normal
LEFT ANTERIOR DESCENDING: The LAD is moderate to heavily calcified and arises normally from the left main. The first diagonal branch is large and arises from the proximal one third of the LAD. The mid LAD just beyond the large first diagonal
branch has a 70-80% stenosis and the mid LAD is heavily calcified with minor irregularities noted in his mid to distal portion. The LAD approaches but does not wraparound the apex. The first diagonal branch is large and supplies a large territory
similar to that of the LAD
CIRCUMFLEX: The circumflex is a medium caliber nondominant vessel. OM1 arises very proximally from the circumflex and is a small caliber vessel. The circumflex terminates in a large OM 2 that has overlapping stents proximally.
RIGHT CORONARY: The right coronary artery is a moderate caliber dominant vessel with diffuse luminal irregularities but no focal obstructive stenosis. The RCA supplies a small PDA with moderate diffuse noncritical coronary disease
VENTRICULOGRAPHY: Not done
ANGIOPLASTY PROCEDURE DETAIL: Upon review of the diagnostic catheterization images the decision was made to proceed with percutaneous revascularization of the high-grade mid LAD stenosis just beyond the large first diagonal branch. Patient arrived
to the catheterization laboratory on background therapy with aspirin and clopidogrel. Intravenous heparin was administered and the ACT was monitored throughout the procedure. The origin of the left main was cannulated with a moderate degree of
difficulty when using an EBU 3.75 guiding catheter. A long BMW guidewire was advanced into the first diagonal branch while a small first diagonal branch was advanced to the distal septal warehouse associate. Balloon predilation was performed using a 2.25 x
15 mm Euphora balloon that was inflated to 22 mark. Unfortunately, residual dog bone was noted in the distal aspect of the balloon. A 2.5 x 12 mm NC Euphora was then inflated to high pressures but failed to achieve full balloon expansion.
Ultimately, a 2.75 x 15 mm Euphora balloon was inflated to 22 mark before the calcified and fibrotic segment cracked achieving full balloon expansion. At this point the 3.0 x 26 mm Polk stent could easily be delivered. The proximal portion of the
stent was positioned in the proximal LAD and the stent spanned the origin of the large first diagonal branch into the mid LAD. The Polk stent was implanted at nominal pressures and postdilated with a 3.0 mm noncompliant balloon in his mid to distal
portion and proximally with a 3.5 x 6 mm noncompliant balloon to 18 mark with a nice angiographic result
RADIATION SUMMARY: Fluoro Time (min): 19.9, Dose (mGy): 1081, DAP (Gy.cm2) : 56.1
CONCLUSIONS
1. Successful stenting of the mid LAD with a 3.0 x 26 mm Douglas stent positioned in the proximal to mid LAD spanning the origin of a large first diagonal branch. The stent was implanted at nominal pressures then postdilated to high pressures both
with a 3.0 mm noncompliant balloon and with a 3.5 mm noncompliant balloon with a nice angiographic result
RECOMMENDATIONS
1. Uninterrupted dual antiplatelet therapy
2. Patient remained very hypertensive pre and post procedure. I have added amlodipine back to medical regimen for goal blood pressure consistently less than 130/80
Copy to: Dr. Codey Johnson
[2024-01-23 15:53] LABS: ACT-LR - POC > 397 Seconds (116-155)
[2024-01-23] MEDS: NORVASC 5 MG PO (17:27)
--- NOTE | 2024-01-23 21:14 | PTCARENOTE ---
Rec'd pt at change of shift. Pt on TELE monitor in NSR with frequent PVC's at baseline, AAO*3, and VSS. Pt remains on nitro gtt for chest pain post heart cath. Pt reports dull pain in chest from heart cath and rates pain between a 0 - 1 out of 10
on pain scale. Pt denies any other discomfort. R radial site with scant red oozing, 3mL of air applied back in R band at 1999. Pt agreed to restrict any physical activity with RUE and notify staff immediately for any bleeding or discharge from
site. Pt on bedrest with RUE elevated and call morrow in reach. Plan of care ongoing.
[2024-01-23] MEDS: DESYREL 50 MG PO (22:34)
[2024-01-23] MEDS: CRESTOR 40 MG PO (22:34)
--- NOTE | 2024-01-23 23:09 | PTCARENOTE ---
R radial band off, dressing applied and CDI. Pt agreed to limb restriction, non weight bearing for RUE, and not to lift anything 10 pounds or heavier. Plan of care ongoing.
[2024-01-24] VITALS: BP 105/56
[2024-01-24 03:00] VITALS: BP 136/66
[2024-01-24 03:58] VITALS: BP 136/66
[2024-01-24 04:20] VITALS: BMI 25.0
[2024-01-24 04:40] LABS: Hematocrit 32.3 % (39.0-52.0); Mean Corp Hgb Conc. 34.1 g/dL (33.0-37.0); Mean Corpuscular Hgb 33.1 pg (27.0-31.0); Mean Corpuscular Volume 97.3 fL (80.0-94.0); Mean Platelet Volume 10.2 fL (7.4-10.4); Platelet Count 136 10^3/uL (130-400); Red Blood Cell Count 3.32 10^6/uL (4.70-6.10); Red Cell Dist. Width 13.7 % (11.5-14.5); White Blood Cell Count 9.5 10^3/uL (4.8-10.8)
[2024-01-24 04:56] LABS: Blood Urea Nitrogen 38 mg/dl (9-20); Calcium 9.1 mg/dl (8.4-10.2); Carbon Dioxide 21 mmol/L (22-30); Chloride 105 mmol/L (98-107); Estimated Creatinine Clearance 46 ml/min; Glucose 94 mg/dl (70-99); HDL Cholesterol 58 mg/dl; LDL Cholesterol, Calculated 52 mg/dl; Potassium 4.5 mmol/L (3.5-5.1); Sodium 137 mmol/L (135-145); Total Cholesterol 125 mg/dl (50-199); Triglyceride 78 mg/dl (10-149); Very Low Density Lipoprotein 15 mg/dl (0-30); eGFR 56.58
[2024-01-24 07:12] VITALS: BP 152/77
[2024-01-24] MEDS: VITAMIN D3 (cholecalciferol) 125 MCG PO (08:28)
[2024-01-24] MEDS: PLAVIX 75 MG PO (08:28)
[2024-01-24] MEDS: OCUVITE SOFTGEL 1 CAP PO (08:28)
[2024-01-24] MEDS: TOPROL XL 50 MG PO (08:28)
[2024-01-24] MEDS: NORVASC 5 MG PO (08:28)
[2024-01-24] MEDS: VITAMIN E 300 UNITS PO (08:28)
[2024-01-24] MEDS: PROTONIX 40 MG PO (08:28)
[2024-01-24] MEDS: COZAAR 100 MG PO (08:28)
[2024-01-24] MEDS: LOW STRENGTH ASPIRIN 81 MG PO (08:29)
[2024-01-24 08:38] LABS: Glycohemoglobin (HgbA1c) 5.4 % (4.0-5.6)
--- NOTE | 2024-01-24 09:19 | W.PN.HOSP.TC ---
Today's Communication/Plan
-
Cleared by cardiology for discharge today
Assessment / Plan
Assessment / Plan
HPI: 78-year-old male past medical history of CAD status post angioplasty in 2021, circumflex stent x 2 in 2011, hypertension, hyperlipidemia, DVT/pulmonary embolism in 2013, giant arteritis, pancreatitis, gallstones, Kapoor's esophagus, spinal
fusion, BPH, presenting to the emergency room for central chest pressure starting last night. Pain is described as elephant sitting on his chest. Pain came on without any exertion while he was watching TV. He denies any shortness of breath,
nausea vomiting or diaphoresis.
#Chest pain
#Coronary artery disease status post angioplasty 2021, and stent [address] negative for PE
Appreciate cardiology input, 01/22 cardiac catheterization with PCI and stent to the LAD
Continue aspirin, Plavix, metoprolol, losartan, Crestor, s/p nitroglycerin drip, s/p heparin drip
Cleared by cardiology for discharge today, follow-up in the office in 2-3 weeks
Essential hypertension
-Continue losartan
-Blood pressure controlled with adding amlodipine 5 mg daily, prescription sent
Hyperlipidemia
-Continue Zetia, statin
History of DVT/pulm embolism 2013
History of giant cell arteritis
History of pancreatic cyst
History of gallstones status post cholecystectomy
Kapoor's esophagus/GERD
-Denies any acid reflux symptoms has been controlled with PPI
-continue protonix, sucralfate
Spinal fusion
BPH
DVT prophylaxis�subcu Lovenox
Full code
Physical Exam
General: No acute distress
HEENT: Normocephalic, Atraumatic, EOMI, MMM
Respiratory: Clear to Auscultation bilaterally
Cardiac: Normal S1/S2, Regular Rate and Rhythm
GI: Soft, Nontender, Nondistended, Normal Bowel Sounds
Extremities: No Clubbing, Cyanosis, or Edema
Neuro: Nonfocal/Grossly Intact
Psych: Calm, Cooperative
Derm: No Visible lesions
Anticipated Discharge: Today
Subjective/Interval History
-
Date of Service: January 24, 2024
No recurrence of chest pain. No chest pain with activity. No shortness of breath. No fever, no vomiting. Patient feels well today, and is eager for discharge.
Objective Data
-
Labs:
Laboratory Results
01/24/24
04:07
WBC 9.5
Hgb 11.0 L
Hct 32.3 L
Plt Count 136
Sodium 137
Potassium 4.5
Chloride 105
Carbon Dioxide 21 L
BUN 38 H
Creatinine 1.3
Glucose 94
Calcium 9.1
Vital Signs:
Vital Signs
Temp Pulse Resp BP Pulse Ox
97.9 F 78 18 152/77 94
01/24/24 03:00 01/24/24 08:30 01/24/24 03:00 01/24/24 07:12 01/24/24 03:00
I&O
01/23/24 01/24/24 01/25/24
06:59 06:59 06:59
Intake Total 180 / 180 1200 / 1200
Output Total 550 / 550
Balance -370 / -370 1200 / 1200
--- NOTE | 2024-01-24 10:13 | W.PN.CARDCBS ---
Today's Communication / Plan
-
Recommendation:
-Discontinue IV nitroglycerin
-Ambulate in halls
-If chest pain-free can probably be discharged depending on primary service needs
-Amlodipine is new. He has been on it before but it was discontinued many years ago because he had been chest pain-free
Impression / Plan
-
PCP: Dr. Michael Pardo
Cardiology: Dr. Johnson
Impression:
-Chest pain on admission 01/22/24: Complex LAD stent on 01/24/24 with high pressure balloon inflation with a 2.75 mm NC balloon before achieving full balloon expansion. This was followed by placement of a 3.0 mm stent iwth a nice angiographic result
-CAD s/p Circumflex stents in 2011 and PTCA of distal LAD in 2021
-Chronic DAPT therapy
-History of giant cell arteritis
-Hypertension
-Hypercholesterolemia
-GERD with Kapoor's esophagus
-History of pancreatitis
-History of cirrhosis
-History of pulm embolus
Echo 10/13/2022: Ejection fraction 50 to 55%
Catheterization March 2021: Single-vessel CAD of the apical LAD with patent circumflex stents, PTCA of distal LAD
Echo 01/23/24: Study pending
Plan:
-Stop IV nitroglycerin
-Ambulate in halls and if chest pain free can be discharged with plans to followup with Dr. Johnson
-He was just started back on Amlodipine. He had been on amlodipine in the past but stopped years ago because he was chest pain free
HPI: Javan has a history of CAD status post 2 overlapping drug-eluting stents to the mid left circumflex as well as angioplasty without stent of the apical LAD in 2021, hypertension, giant cell arteritis, hypercholesterolemia, pulm embolism. He
presents with complaints of chest discomfort. Of note he has had chest discomfort for the last 3 to 4 months. This is described as a chest pressure. He noted chest discomfort the past 2 days. His chest pain was very sharp worse with taking deep
breath. Was not related to burping or eating food. Pain worse and came to the ER. He has had chest pain for almost 24 hours with 3 negative troponins so far. Note the pain is worse with taking a deep breath. There was no change with
nitroglycerin
Progress Note - Marriage Performer
Subjective
Date of Service: January 24, 2024
Feeling well. No chest pain.
Objective
Labs:
01/24/24 04:07
01/24/24 04:07
Labs
Hgb 11.0 g/dL (13.0-18.0) L 01/24/24 04:07
Hct 32.3 % (39.0-52.0) L 01/24/24 04:07
Plt Count 136 10^3/uL (130-400) 01/24/24 04:07
PT 13.7 Sec (11.4-14.6) 01/22/24 14:20
INR 1.02 01/22/24 14:20
APTT 90.7 Sec (23.4-35.0) H 01/23/24 03:51
Sodium 137 mmol/L (135-145) 01/24/24 04:07
Potassium 4.5 mmol/L (3.5-5.1) 01/24/24 04:07
BUN 38 mg/dl (9-20) H 01/24/24 04:07
Creatinine 1.3 mg/dL (0.7-1.3) 01/24/24 04:07
Glucose 94 mg/dl (70-99) 01/24/24 04:07
Troponins
01/22/24 01/22/24 01/22/24
08:23 10:31 15:50
Troponin I < 0.012 < 0.012 < 0.012
01/22/24 01/23/24
21:15 03:55
Troponin I 0.016 D < 0.012 D
Vital Signs and I&O:
Vital Signs
Temp Pulse Resp BP Pulse Ox
97.9 F 78 18 152/77 94
01/24/24 03:00 01/24/24 08:30 01/24/24 03:00 01/24/24 07:12 01/24/24 03:00
Vital Signs
Temp Pulse Resp BP Pulse Ox
97.9 F 78 18 152/77 94
01/24/24 03:00 01/24/24 08:30 01/24/24 03:00 01/24/24 07:12 01/24/24 03:00
Intake & Output
01/21/24 01/22/24 01/23/24 01/24/24
23:59 23:59 23:59 23:59
Intake Total 180 / 180 1200 / 1200
Output Total 550 / 550
Balance -370 / -370 1200 / 1200
Physical Exam
Physical Exam
GEN: AAO x 3. No acute distress
HEENT: NC/AT, sclera are anicteric,
LUNGS: Clear in the anterior and lateral lung field
CV: Regular rate and rhythm. Normal S1/S2. No S3, No S4. Murmur: None
ABD : Soft, bowel sounds present
EXT: No CCE
NEURO: No focal neurologic deficits
--- NOTE | 2024-01-24 10:25 | CM ---
Reviewed chart. Met with Mr. Montes to review discharge plans. He states he is feeling better and maybe able to go home soon. Prior to admission he resides alone in a two story home with one step to enter. He has a full flight of steps to get to
bedroom/full bathroom. He has a powder room on the first floor. He does not have any DME in the home Prior to admission he was independent with ambulation and adls. He has a prescription plan and uses [facility]. The discharge plan is to
return home when medically stable.
--- NOTE | 2024-01-24 10:50 | PTCARENOTE ---
Chest pain free, Nitro IV discontinued. Walked in hallway.
[2024-01-24 11:34] VITALS: BP 143/69
--- NOTE | 2024-01-24 11:34 | W.DCSUMMARY ---
Discharge Summary
Discharge Data
Date of Admission: 01/22/24
Date of Discharge: 01/24/24
-
Pending Results: No
Hospital Course
Discharge diagnosis:
Angina/chest pain
Coronary artery disease status post stent placement in 2011
Essential hypertension
Hyperlipidemia
History of pulmonary embolism/deep vein thrombosis
History of giant cell arteritis
History of pancreatic cyst
History of gallstones status post cholecystectomy
Kapoor's esophagus/gastroesophageal reflux disease
Spinal fusion
Benign prostatic hypertrophy
Consults: Cardiology
Procedures
01/23/2024 cardiac catheterization:
1. Left heart catheterization with coronary angiography
2. Successful stenting of the mid LAD with a 3.0 x 26 mm [place] stent that was implanted at nominal pressures and postdilated with a 3.0 mm noncompliant balloon at the distal and midportion of the stent and with a 3.5 mm noncompliant balloon in the
proximal portion of the stent
Hospital course:
78-year-old male with a past medical history of CAD status post stent placement, hypertension, hyperlipidemia, PE/DVT, BPH, and GERD was admitted for chest pain concerning for angina. Patient was seen in conjunction with cardiology. He was
continued on aspirin, Plavix, Crestor, and metoprolol. He was treated with IV heparin drip and IV nitroglycerin drip.
Patient's blood pressure was elevated. He was also started on amlodipine 5 mg daily. He was continued on losartan.
Patient underwent cardiac catheterization with stent placement to the LAD on 01/23/2024. He did well postprocedure. He did not have any recurrence of chest pain with ambulation. He is medically stable and cleared by cardiology for discharge. He
can continue amlodipine 5 mg daily upon discharge, as well as his previous cardiac medications. He needs to follow-up with his primary care doctor in 1 week, as well as cardiology in the office in 2-3 weeks.
Disposition: Home self-care
Discharge planning: Required 38 minutes
Discharge Plan
-
Patient Disposition: Home (Routine Discharge)
Discharge Diagnosis/Procedures: Angioplasty and stent to Left Anterior Descending artery
Condition: Good
Diet: Low Fat and Low Cholesterol
Driving Restrictions: No driving for 24 hours
Other Services: Cardiac Rehab
Stand Alone Forms: DC Instructions- Cath/EP Lab
Referrals:
Michael Pardo MD [Family Provider] - in one week
Marguerite Mcdonald CRNP [Specified Professional Personl] - 02/13/24 9:00 am (Cardiology followup appointment)
Prescriptions:
New
amlodipine 5 mg Tablet
5 mg PO DAILY Qty: 30 0RF
Continued
aspirin 81 MG tablet,chewable
81 mg PO DAILY Qty: 0 0RF
rosuvastatin [Crestor] 40 MG tablet
40 mg PO HS
[id number]-epa-fish oil 1 EACH capsule
1 cap PO DAILY
trazodone 50 MG tablet
50 mg PO HS
metoprolol succinate 50 MG tablet extended release 24 hr
50 mg PO DAILY
losartan 100 MG tablet
100 mg PO DAILY
cholecalciferol (vitamin D3) 125 mcg (5,000 unit) Tablet
125 mcg PO DAILY Qty: 0
PreserVision AREDS-2 250-90-40-1 mg Capsule
1 tab PO BID Qty: 0
vitamin E acetate 134 MG capsule
160 mg PO DAILY
clopidogrel 75 MG tablet
75 mg PO DAILY Qty: 30 11RF
pantoprazole 40 MG tablet,delayed release (DR/EC)
40 mg PO BID Qty: 60 11RF
tadalafil [Cialis] 20 mg Tablet
20 mg PO DAILYPRN PRN (Reason: ed)
Discharge Orders:
Discharge Patient (As Directed); Ordered 01/24/24
Ordered By: Heladio Do
Care Plan Goals
Care Plan Goals:
Problem: Readiness for enhanced knowledge related to diagnosis and treatment plan
Goal: Understand your diagnosis and treatment plan needs, including medications if applicable.
Instructions: Know your diagnosis, underlying causes and treatment plan options, including medications if applicable. Consult with your health care team to learn about your diagnosis and treatment plan, including medications if applicable.
Discharge Date and Time
Discharge Date/Time: 01/24/24 12:54
Print Language: MALAGASY
--- NOTE | 2024-01-24 12:25 | PTCARENOTE ---
Discharge teaching completed. Patient verbalized understanding. Prescription for Norvasc given to patient along with stent card. Son available to pick patient up today, IV and telemetry removed
== END 2024-01-24 12:54 | disposition home or self-care (01) | DRG 322 ==
LOC: IVU 14:09
PROVIDERS: Internal Medicine Interventional Cardiology; Nurse Practitioner; Physician Assistant; ADMITTING PHYSICIAN Hospitalist; ATTENDING PHYSICIAN Family Medicine; CONSULT PHYSICIAN Internal Medicine Cardiovascular Disease; EMERGENCY PHYSICIAN Student in an Organized Health Care Education/Training Program; FAMILY PHYSICIAN Internal Medicine
PROC: B2111ZZ Fluoroscopy of Multiple Coronary Arteries using Low Osmolar Contrast (ICD-10-PCS; 2024-01-22)
PROC: 027034Z Dilation of Coronary Artery, One Artery with Drug-eluting Intraluminal Device, Percutaneous Approach (ICD-10-PCS; 2024-01-22)
PROC: 4A023N7 Measurement of Cardiac Sampling and Pressure, Left Heart, Percutaneous Approach (ICD-10-PCS; 2024-01-22)
DX: I25.110 Atherosclerotic heart disease of native coronary artery with unstable angina pectoris (principal); K86.2 Cyst of pancreas; K74.60 Unspecified cirrhosis of liver; I10 Essential (primary) hypertension; E78.00 Pure hypercholesterolemia, unspecified; F41.9 Anxiety disorder, unspecified; K21.9 Gastro-esophageal reflux disease without esophagitis; K22.70 Barrett's esophagus without dysplasia; M19.90 Unspecified osteoarthritis, unspecified site; N40.0 Benign prostatic hyperplasia without lower urinary tract symptoms; Z95.5 Presence of coronary angioplasty implant and graft; Z79.02 Long term (current) use of antithrombotics/antiplatelets; Z79.82 Long term (current) use of aspirin; Z79.899 Other long term (current) drug therapy; Z86.711 Personal history of pulmonary embolism; Z86.718 Personal history of other venous thrombosis and embolism; Z87.891 Personal history of nicotine dependence; Z87.19 Personal history of other diseases of the digestive system; Z90.49 Acquired absence of other specified parts of digestive tract; Z98.1 Arthrodesis status; Z88.8 Allergy status to other drugs, medicaments and biological substances; Z91.041 Radiographic dye allergy status; Z82.49 Family history of ischemic heart disease and other diseases of the circulatory system
CPT/HCPCS: 71046; 71275; 80048; 80053; 80061; 83036; 83690; 83735; 84484; 85025; 85027; 85347; 85379; 85610; 85730; 93005; 93306; 93458; 96374; 99285; C1725; C1769; C1874; C1887; C1894; C9600; Q9967

== ENCOUNTER 2024-03-19 18:36 | Outpatient (RCR) | payer MEDICARE, OTHER, SELFPAY | END 2024-03-19 23:59 | disposition home or self-care (01) | LOC: CRHB 18:36 | PROVIDERS: ATTENDING PHYSICIAN Nuclear Medicine Nuclear Cardiology | DX: I25.10 Atherosclerotic heart disease of native coronary artery without angina pectoris (principal); Z95.5 Presence of coronary angioplasty implant and graft | CPT/HCPCS: G0422; G0423 ==

== ENCOUNTER → 2024-04-02 08:43 | Outpatient (REF) | payer MEDICARE, OTHER, SELFPAY | LOC: HWRCS 08:43 | PROVIDERS: ATTENDING PHYSICIAN Nuclear Medicine Nuclear Cardiology; FAMILY PHYSICIAN Internal Medicine | DX: I25.10 Atherosclerotic heart disease of native coronary artery without angina pectoris (principal); R07.9 Chest pain, unspecified | CPT/HCPCS: 78452; 93017; A9500 ==

== ENCOUNTER 2024-04-23 06:46 | Day surgery (SDC) | payer MEDICARE, OTHER, SELFPAY ==
[2024-04-23] VITALS (15 sets, daily range): BP systolic 106–169; BP diastolic 59–132; BMI 25.7
[2024-04-23] MEDS: NSS 237 ML IV (07:26)
[2024-04-23] MEDS: LOW STRENGTH ASPIRIN 162 MG PO (07:27)
[2024-04-23] MEDS: PLAVIX 75 MG PO (07:27)
[2024-04-23 07:38] LABS: ALT (SGPT) 31 U/L (0-50); APTT 31.6 Sec (23.4-35.0); AST (SGOT) 42 U/L (17-59); Albumin 3.9 g/dl (3.5-5.0); Alkaline Phosphatase 153 U/L (38-126); Blood Urea Nitrogen 25 mg/dl (9-20); Calcium 9.8 mg/dl (8.4-10.2); Carbon Dioxide 19 mmol/L (22-30); Chloride 107 mmol/L (98-107); Estimated Creatinine Clearance 48 ml/min; Glucose 141 mg/dl (70-99); INR 1.04; PT 13.9 Sec (11.4-14.6); Potassium 4.6 mmol/L (3.5-5.1); Sodium 136 mmol/L (135-145); Total Bilirubin 0.7 mg/dl (0.2-1.3); Total Protein 6.5 g/dl (6.3-8.2); eGFR 56.58
[2024-04-23 07:42] LABS: Hematocrit 32.9 % (39.0-52.0); Hemoglobin 11.6 g/dL (13.0-18.0); Mean Corp Hgb Conc. 35.3 g/dL (33.0-37.0); Mean Corpuscular Hgb 33.2 pg (27.0-31.0); Mean Corpuscular Volume 94.3 fL (80.0-94.0); Mean Platelet Volume 9.7 fL (7.4-10.4); Platelet Count 142 10^3/uL (130-400); Red Blood Cell Count 3.49 10^6/uL (4.70-6.10); Red Cell Dist. Width 13.8 % (11.5-14.5); White Blood Cell Count 8.7 10^3/uL (4.8-10.8)
[2024-04-23] MEDS: NSS 1000 IV (10:07)
--- NOTE | 2024-04-23 10:39 | ITS.CL.CATH ---
[facility] - Catheterization
Cardiac Catheterization
Procedure Report:
LEFT HEART CATHETERIZATION
Date of Procedure: April 23, 2024
Referring: Dr. Codey Johnson
PROCEDURES:
1. Left heart catheterization with coronary and single-plane left ventriculography
INDICATION: This is a 78-year-old gentleman with a prior history of coronary artery disease. There are overlapping stents in the mid circumflex and balloon angioplasty of the apical LAD. He presented to [facility] in January 2024 with
worsening/resting anginal symptoms. His troponin measured serially within normal limits but he was referred for coronary angiography and was found to have a high-grade stenosis in the mid LAD just beyond the first diagonal branch. He underwent
successful stenting of the proximal to mid LAD with a nice angiographic result. His symptoms improved but more recently he began noticing exertional chest tightness.
His blood pressures have typically been running 130-140 mmHg at home. Medications listed on his home medication sheet had several inaccuracies. He was listed to be on 10 mg of amlodipine which Dr. Johnson reported stopped in the office a week ago.
Pharmacy records indicate that his amlodipine was only filled at 5 mg daily which he has been taking twice daily more recently. His home records indicate that he is on 25 mg of metoprolol XL while outpatient records suggest that he is taking 50 mg
of metoprolol XL. Dr. Johnson had started hydralazine. Patient picked up the prescription but is not listed to be taking it and he is not sure if he is actually been taking it at home.
ACCESS: Right radial artery, 6 [place] sheath
HEMODYNAMICS : (mmHg)
AO (s/d) : 140/73
LV (s/d) : 147/10
LVEDP : 15
CORONARY FINDINGS
DOMINANCE: Right
LEFT MAIN: Normal
LEFT ANTERIOR DESCENDING: The LAD arises normally from the left main running in the anterior interventricular groove. The recently implanted proximal to mid LAD stent spans the origin of the first diagonal branch and the stent appears widely
patent. The first diagonal branch has a 40% mid stenosis that appears angiographically stable and the remainder of the LAD has diffuse luminal irregularities but no focal obstructive stenosis.
CIRCUMFLEX: The circumflex has overlapping stents in its midportion that are widely patent.
RIGHT CORONARY ARTERY: The right coronary artery is a moderate caliber dominant vessel with diffuse luminal irregularities but no focal obstructive stenosis. The RCA supplies a small PDA with moderate diffuse but noncritical coronary disease
VENTRICULOGRAPHY: Left ventriculography is performed in a SOTOMAYOR projection and the LVEF is estimated at 60%
RADIATION SUMMARY: Fluoro Time (min): 4.0, Dose (mGy): 384, DAP (Gy.cm2) : 28.5
Closure Device: TR band
CONCLUSIONS
1. Stable coronary anatomy with patent recently implanted LAD stent, and old circumflex/OM overlapping stents
2. Preserved LV systolic function
RECOMMENDATIONS
1. Continue working on blood pressure control. Amlodipine 10 mg was recently held. Will restart in pain 5 mg.
2. Isosorbide mononitrate 30 mg daily
3. Add chlorthalidone 25 mg daily to improve blood pressure control
4. Continue losartan 100 mg daily and continue metoprolol XL 50 mg daily
5. Continue dual antiplatelet therapy
6. Follow-up with Dr. Johnson
Copy to: Dr. Codey Johnson
[2024-04-23] MEDS: NORVASC 5 MG PO (11:20)
[2024-04-23] MEDS: TOPROL XL 50 MG PO (11:20)
[2024-04-23] MEDS: COZAAR 100 MG PO (11:20)
== END 2024-04-23 12:45 | disposition home or self-care (01) ==
LOC: CATH 06:46
PROVIDERS: ATTENDING PHYSICIAN Internal Medicine Interventional Cardiology; FAMILY PHYSICIAN Internal Medicine; OTHER PHYSICIAN Nuclear Medicine Nuclear Cardiology
DX: I25.119 Atherosclerotic heart disease of native coronary artery with unspecified angina pectoris (principal); Z95.5 Presence of coronary angioplasty implant and graft; Z79.02 Long term (current) use of antithrombotics/antiplatelets; Z79.82 Long term (current) use of aspirin; Z79.899 Other long term (current) drug therapy; Z79.890 Hormone replacement therapy; I10 Essential (primary) hypertension
CPT/HCPCS: 80053; 85027; 85610; 85730; 93458; C1894; Q9967

== ENCOUNTER → 2024-05-29 08:09 | Outpatient (REF) | payer MEDICARE, OTHER, SELFPAY ==
[2024-05-29 09:30] LABS: % Basophils 0.5 % (0-2); % Eosinophils 6.5 % (0-6); % Immature Granulocytes 0.3 % (0-0.5); % Lymphocytes 20.7 % (20.5-51.1); % Monocytes 11.4 % (1.7-9.3); % Neutrophils 60.6 % (42.2-75.2); Absolute Eosinophils 0.4 10^3/uL (0-0.7); Absolute Lymphocytes 1.3 10^3/uL (1.2-3.4); Absolute Monocytes 0.7 10^3/uL (0.1-0.6); Absolute Neutrophils 3.7 10^3/uL (1.4-6.5); Hematocrit 37.4 % (39.0-52.0); Hemoglobin 12.5 g/dL (13.0-18.0); Mean Corp Hgb Conc. 33.4 g/dL (33.0-37.0); Mean Corpuscular Hgb 32.2 pg (27.0-31.0); Mean Corpuscular Volume 96.4 fL (80.0-94.0); Mean Platelet Volume 9.5 fL (7.4-10.4); Nucleated Red Blood Cells % 0 % (-); Platelet Count 153 10^3/uL (130-400); Red Blood Cell Count 3.88 10^6/uL (4.70-6.10); Red Cell Dist. Width 13.8 % (11.5-14.5); White Blood Cell Count 6.1 10^3/uL (4.8-10.8)
[2024-05-29 10:12] LABS: ALT (SGPT) 33 U/L (0-50); AST (SGOT) 45 U/L (17-59); Albumin 4.7 g/dl (3.5-5.0); Alkaline Phosphatase 152 U/L (38-126); Blood Urea Nitrogen 45 mg/dl (9-20); Calcium 10.1 mg/dl (8.4-10.2); Carbon Dioxide 23 mmol/L (22-30); Chloride 105 mmol/L (98-107); Glucose 83 mg/dl (70-99); HDL Cholesterol 38 mg/dl; LDL Cholesterol, Calculated 48 mg/dl; Potassium 4.3 mmol/L (3.5-5.1); Sodium 141 mmol/L (135-145); Total Bilirubin 0.7 mg/dl (0.2-1.3); Total Cholesterol 127 mg/dl (50-199); Total Protein 7.2 g/dl (6.3-8.2); Triglyceride 208 mg/dl (10-149); Very Low Density Lipoprotein 41 mg/dl (0-30)
[2024-05-29 10:50] LABS: TSH Reflex To Free T4 2.79 uIU/ml (0.47-4.68)
== END ==
LOC: HWLAB 08:09
PROVIDERS: ATTENDING PHYSICIAN Internal Medicine; OTHER PHYSICIAN Internal Medicine Gastroenterology; REFERRING PHYSICIAN Nuclear Medicine Nuclear Cardiology
DX: E78.49 Other hyperlipidemia (principal); I10 Essential (primary) hypertension; I27.20 Pulmonary hypertension, unspecified
CPT/HCPCS: 36415; 80053; 80061; 84443; 85025

== ENCOUNTER 2024-06-01 11:08 | Outpatient (RCR) | payer MEDICARE, OTHER, SELFPAY | END 2024-06-01 23:59 | disposition home or self-care (01) | LOC: CRHB 11:08 | PROVIDERS: ATTENDING PHYSICIAN Nuclear Medicine Nuclear Cardiology | DX: I25.10 Atherosclerotic heart disease of native coronary artery without angina pectoris (principal); Z95.5 Presence of coronary angioplasty implant and graft | CPT/HCPCS: G0422; G0423 ==

== ENCOUNTER 2024-06-06 10:35 | Outpatient (RCR) | payer MEDICARE, OTHER, SELFPAY | END 2024-06-06 23:59 | disposition home or self-care (01) | LOC: CRHB 10:35 | PROVIDERS: ATTENDING PHYSICIAN Nuclear Medicine Nuclear Cardiology | DX: I25.10 Atherosclerotic heart disease of native coronary artery without angina pectoris (principal); Z95.5 Presence of coronary angioplasty implant and graft | CPT/HCPCS: G0422; G0423 ==

== ENCOUNTER → 2024-07-26 07:08 | Outpatient (REF) | payer MEDICARE, OTHER, SELFPAY | LOC: HWRAD 07:08 | PROVIDERS: ATTENDING PHYSICIAN Internal Medicine Gastroenterology; FAMILY PHYSICIAN Internal Medicine | DX: K74.69 Other cirrhosis of liver (principal) | CPT/HCPCS: 76700 ==

== ENCOUNTER → 2024-08-14 08:23 | Outpatient (REF) | payer MEDICARE, OTHER, SELFPAY ==
[2024-08-14 10:20] LABS: Blood Urea Nitrogen 31 mg/dl (9-20); Calcium 9.9 mg/dl (8.4-10.2); Carbon Dioxide 26 mmol/L (22-30); Chloride 109 mmol/L (98-107); Glucose 86 mg/dl (70-99); Potassium 4.6 mmol/L (3.5-5.1); Sodium 141 mmol/L (135-145); eGFR 56.58
== END ==
LOC: HWLAB 08:23
PROVIDERS: ATTENDING PHYSICIAN Nuclear Medicine Nuclear Cardiology; FAMILY PHYSICIAN Internal Medicine; REFERRING PHYSICIAN Internal Medicine Gastroenterology
DX: I25.10 Atherosclerotic heart disease of native coronary artery without angina pectoris (principal); Z95.5 Presence of coronary angioplasty implant and graft; I10 Essential (primary) hypertension
CPT/HCPCS: 36415; 80048

== ENCOUNTER 2024-09-01 09:21 | Emergency (ER) | payer MEDICARE, OTHER, SELFPAY ==
[2024-09-01 09:22] VITALS: BP 130/66
[2024-09-01 10:00] VITALS: BMI 26.0
--- NOTE | 2024-09-01 10:00 | ED.GENMED ---
History of Present Illness
General
Chief Complaint: Swelling
Source: patient
Exam Limitations: none
Time Seen by Provider: 09/01/24 09:51
History of Present Illness
History of Present Illness:
See MDM
Past History
Past History
ED Past Medical History: CAD, HTN, Hypercholesterolemia and Other (BPH, osteoarthritis, pancreatitis, pulmonary embolism 2013)
ED Past Surgical History: Cardiac (Cardiac stents) and Other (Facial fracture surgery, spinal fusion in 1992, and 1994, cardiac catheterization with stent placement in August of 2011, hemorrhoid surgery); Negative Appendectomy or Bowel resection
Social History
Tobacco: Former smoker
Alcohol: Occasional
Drug: None
Personal:
Living: with family
Employment: Employed
Family History
Family History: Other (Noncontributory)
Phy Exam
Physical Exam
Physical Exam:
See MDM
Scores
Heart Failure Risk
Heart Failure Risk Score: Not Applicable
Course
Orders/Labs/Results
Orders:
Orders
09/01/24 09:59
US Periph Venous LOWER Ext LT Urgent
Comment:
Reason For Exam: left calf pain
09/01/24 10:16
Complete Blood Count/With Diff Urgent
Comprehensive Metabolic Panel Urgent
09/01/24 10:48
PTT Routine
Prothrombin Time Routine
Abnormal Lab Results
09/01/24
10:16
RBC 3.57 L 10^6/uL
(4.70-6.10)
Hgb 12.2 L g/dL
(13.0-18.0)
Hct 35.7 L %
(39.0-52.0)
MCV 100.0 H fL
(80.0-94.0)
MCH 34.2 H pg
(27.0-31.0)
Absolute Lymphs (auto) 1.1 L 10^3/uL
(1.2-3.4)
Absolute Monos (auto) 0.9 H 10^3/uL
(0.1-0.6)
Lymphocytes % 17.4 L %
(20.5-51.1)
Monocytes % 14.7 H %
(1.7-9.3)
Chloride 110 H mmol/L
(98-107)
BUN 24 H mg/dl
(9-20)
AST 62 H U/L
(17-59)
Alkaline Phosphatase 168 H U/L
(38-126)
09/01/24 10:16
09/01/24 10:16
Vital Signs
Initial and Last Documented VS:
Initial Vital Signs
Temp Pulse Resp BP Pulse Ox
99 F 54 16 130/66 98
09/01/24 09:22 09/01/24 09:22 09/01/24 09:22 09/01/24 09:22 09/01/24 09:22
Last Documented Vital Signs
Temp Pulse Resp BP Pulse Ox
99 F 54 16 130/66 98
09/01/24 09:22 09/01/24 09:22 09/01/24 09:22 09/01/24 09:22 09/01/24 10:03
MDM/Problems Addressed
Differential Diagnosis Includes:
HPI and MDM Narrative:
78-year-old male presenting for evaluation of left leg and calf pain. He does have a history of sciatica and has required epidurals. He has had recent epidurals but has had worsening pain in his left hip all the way down to his left calf for the
past several months that has progressed. Symptoms are worse when he ambulates. He does acknowledge that sometimes the pain can happen while lying down. He denies numbness or tingling. On my exam, he does have mild edema to his left calf and left
ankle but DP pulses are +2. Sensation grossly intact. Will obtain ultrasound to rule out DVT. If DVT negative, will discuss case with vascular surgery given the concern for possible claudication
Physical exam
General: Well appearing and non-toxic
HEENT: protecting airway
Neck: appears supple
CV: No evidence of cyanosis
Resp: No accessory muscle use
Abd: Non-distended
Extremities: Mild edema to left calf and left ankle. DP pulses intact. Negative straight leg raise. Distal sensation grossly intact
Neuro: alert
Psych: Normal affect
Skin: Intact
Problems Addressed including Acute and Chronic Conditions affecting care:
1. Left leg calf and ankle pain
Acuity: acute
Prognosis: stable
Details: Will obtain ultrasound rule out DVT
Updates
Ultrasound negative for DVT. Case discussed with vascular surgery. Will continue the workup in the outpatient setting.
Differential Diagnosis (but not limited to): DVT, claudication, sciatica
Testing considered: CTA
Drug therapy (if applicable): OTC meds, please see d/c instruction regarding Rx drugs
Amount and/or Complexity of Data Reviewed
Clinical info obtained from: Patient
External data reviewed: N/A
Labs I independently reviewed (but not limited to): White blood cell count normal
Radiology: Ultrasound report reviewed
Pulse Ox: not hypoxic
EKG independently reviewed: N/A
Commodity Trader: N/A
Critical Care: N/A
Risk of Complication:
Social Determinants of health: Good social support
Discussed with other providers: Vascular surgeon
Escalation of Care includes Admit/Obs: After being observed in the Emergency Department, pt stable for discharge.
Occasional wrong word or 'sound a like' substitutions may have occurred due to the inherent limitations of voice recognition software. Read the chart carefully and recognize, using context, where substitutions have occurred.
*Pulse Oximetry
SaO2: 98
Oxygen Mode of Delivery: Room air
Patient hypoxic: no
*Critical Care Note
Total Time (30-74mins, 75-104mins- exclusive of procedures): Not Applicable
ED Attending Note
-
Portions of this chart may have been created with voice recognition software.� Occasional wrong word or��sound alike� substitutions may have occurred due to the inherent limitations of voice recognition software.
Discharge Plan
Departure
Patient Disposition: Home (Routine Discharge)
Date of Disposition: 09/01/24
Time of Disposition: 11:25
Patient with high blood pressure during this ER visit?: No
Discharge Problem:
Left leg swelling
Instructions: Exercises for sciatic pain
Prescriptions:
No Action
rosuvastatin [Crestor] 40 MG tablet
40 mg PO DAILY
[id number]-epa-fish oil 1 EACH capsule
1 cap PO DAILY
trazodone 50 MG tablet
50 mg PO HS
metoprolol succinate 50 MG tablet extended release 24 hr
50 mg PO DAILY
losartan 100 MG tablet
100 mg PO DAILY
cholecalciferol (vitamin D3) 125 mcg (5,000 unit) Tablet
125 mcg PO DAILY Qty: 0
PreserVision AREDS-2 250-90-40-1 mg Capsule
1 tab PO BID Qty: 0
vitamin E acetate 134 MG capsule
160 mg PO DAILY
clopidogrel 75 MG tablet
75 mg PO DAILY Qty: 30 11RF
pantoprazole 40 MG tablet,delayed release (DR/EC)
40 mg PO BID Qty: 60 11RF
vitamin B complex Tablet Extended Release
1 tab PO DAILY
levothyroxine 75 mcg Tablet
75 mcg PO HS
Centrum 18-400 mg-mcg Tablet
1 tab PO DAILY
turmeric 400 mg Capsule
400 mg PO DAILY
nitroglycerin 0.4 mg Tablet, Sublingual
0.4 mg SUBLINGUAL Q5-15M PRN (Reason: chest pain)
aspirin 81 MG tablet,chewable
81 mg PO QPM
chlorthalidone 25 mg tablet
25 mg PO DAILY Qty: 90 3RF
isosorbide mononitrate 30 mg tablet extended release 24 hr
30 mg PO DAILY Qty: 90 3RF
amlodipine 5 mg tablet
5 mg PO DAILY Qty: 90 3RF
Referrals:
Rosas Teresa III, MD [Active, Vascular Surgery]
Michael Pardo MD [Family Provider, Internal Medicine]
Activity Restrictions/Additional Instructions:
Please return for any worsening symptoms.
You may return at any time if you have further concerns.
Please follow up with your doctor at the first available appointment, preferably this week.
I spoke to the vascular surgeon. He indicated that he will reach out to the office so that they can call you Tuesday to expedite follow-up. If you do not hear by Tuesday, please give them a call.
Thank you for choosing [facility].
Interventions
Interventions:
*Risk Screen - Suicide Last Done: 09/01/24 09:24
*Neglect/Abuse Screening Last Done: 09/01/24 09:24
Discharge Date and Time
Print Language: LAO
[2024-09-01 10:24] LABS: % Basophils 0.5 % (0-2); % Eosinophils 5.8 % (0-6); % Immature Granulocytes 0.2 % (0-0.5); % Lymphocytes 17.4 % (20.5-51.1); % Monocytes 14.7 % (1.7-9.3); % Neutrophils 61.4 % (42.2-75.2); Absolute Eosinophils 0.4 10^3/uL (0-0.7); Absolute Lymphocytes 1.1 10^3/uL (1.2-3.4); Absolute Monocytes 0.9 10^3/uL (0.1-0.6); Absolute Neutrophils 3.9 10^3/uL (1.4-6.5); Hematocrit 35.7 % (39.0-52.0); Hemoglobin 12.2 g/dL (13.0-18.0); Mean Corp Hgb Conc. 34.2 g/dL (33.0-37.0); Mean Corpuscular Hgb 34.2 pg (27.0-31.0); Mean Platelet Volume 9.7 fL (7.4-10.4); Nucleated Red Blood Cells % 0 % (-); Platelet Count 132 10^3/uL (130-400); Red Blood Cell Count 3.57 10^6/uL (4.70-6.10); Red Cell Dist. Width 13.9 % (11.5-14.5); White Blood Cell Count 6.3 10^3/uL (4.8-10.8)
[2024-09-01 10:44] LABS: ALT (SGPT) 37 U/L (0-50); AST (SGOT) 62 U/L (17-59); Albumin 3.8 g/dl (3.5-5.0); Alkaline Phosphatase 168 U/L (38-126); Blood Urea Nitrogen 24 mg/dl (9-20); Calcium 9.3 mg/dl (8.4-10.2); Carbon Dioxide 22 mmol/L (22-30); Chloride 110 mmol/L (98-107); Estimated Creatinine Clearance 60 ml/min; Glucose 83 mg/dl (70-99); Potassium 4.1 mmol/L (3.5-5.1); Sodium 138 mmol/L (135-145); Total Bilirubin 0.6 mg/dl (0.2-1.3); Total Protein 6.3 g/dl (6.3-8.2); eGFR > 60.00
[2024-09-01 11:57] LABS: INR 1.02; PT 13.7 Sec (11.4-14.6)
== END 2024-09-01 11:30 | disposition home or self-care (01) ==
LOC: EMR 09:21
PROVIDERS: EMERGENCY PHYSICIAN Student in an Organized Health Care Education/Training Program; FAMILY PHYSICIAN Internal Medicine
DX: M79.89 Other specified soft tissue disorders (principal); M79.605 Pain in left leg; M25.552 Pain in left hip; M54.30 Sciatica, unspecified side; I10 Essential (primary) hypertension; I25.10 Atherosclerotic heart disease of native coronary artery without angina pectoris; E78.00 Pure hypercholesterolemia, unspecified; M19.90 Unspecified osteoarthritis, unspecified site; N40.0 Benign prostatic hyperplasia without lower urinary tract symptoms; Z95.5 Presence of coronary angioplasty implant and graft; Z87.891 Personal history of nicotine dependence; Z86.711 Personal history of pulmonary embolism; Z79.82 Long term (current) use of aspirin; Z98.1 Arthrodesis status; Z88.8 Allergy status to other drugs, medicaments and biological substances; Z91.041 Radiographic dye allergy status
CPT/HCPCS: 99284; 80053; 85025; 85610; 85730; 93971

== ENCOUNTER → 2024-09-05 08:14 | Outpatient (REF) | payer MEDICARE, OTHER, SELFPAY ==
[2024-09-05 12:41] LABS: ALT (SGPT) 25 U/L (0-50); AST (SGOT) 34 U/L (17-59); Albumin 3.7 g/dl (3.5-5.0); Blood Urea Nitrogen 22 mg/dl (9-20); Calcium 9.6 mg/dl (8.4-10.2); Carbon Dioxide 22 mmol/L (22-30); Chloride 112 mmol/L (98-107); GGTP 228 U/L (15-73); Glucose 106 mg/dl (70-99); Potassium 4.0 mmol/L (3.5-5.1); Sodium 139 mmol/L (135-145); Total Protein 6.1 g/dl (6.3-8.2); eGFR > 60.00
[2024-09-05 12:45] LABS: INR 0.99; PT 13.6 Sec (11.4-14.6)
[2024-09-05 12:49] LABS: Hematocrit 35.3 % (39.0-52.0); Hemoglobin 11.8 g/dL (13.0-18.0); Mean Corp Hgb Conc. 33.4 g/dL (33.0-37.0); Mean Corpuscular Volume 99.7 fL (80.0-94.0); Nucleated Red Blood Cells % 0 % (-); Platelet Count 180 10^3/uL (130-400); Red Cell Dist. Width 13.8 % (11.5-14.5)
[2024-09-05 12:50] LABS: Alkaline Phosphatase 189 U/L (38-126)
[2024-09-06 19:53] LABS: AFP Male/Tumor Marker 6.31 ng/ml
== END ==
LOC: HWLAB 08:14
PROVIDERS: ATTENDING PHYSICIAN Internal Medicine Transplant Hepatology; FAMILY PHYSICIAN Psychiatry & Neurology Neurology; REFERRING PHYSICIAN Internal Medicine Gastroenterology
DX: K74.69 Other cirrhosis of liver (principal)
CPT/HCPCS: 36415; 80053; 82105; 82977; 85025; 85610

== ENCOUNTER → 2024-09-13 06:57 | Outpatient (REF) | payer MEDICARE, OTHER, SELFPAY | LOC: RAD 06:57 | PROVIDERS: ATTENDING PHYSICIAN Internal Medicine; REFERRING PHYSICIAN Surgery Vascular Surgery | DX: I73.9 Peripheral vascular disease, unspecified (principal) | CPT/HCPCS: 93922 ==

== ENCOUNTER → 2024-10-19 06:58 | Outpatient (REF) | payer MEDICARE, OTHER, SELFPAY | LOC: RAD 06:58 | PROVIDERS: ATTENDING PHYSICIAN Surgery Vascular Surgery; FAMILY PHYSICIAN Internal Medicine | DX: I73.9 Peripheral vascular disease, unspecified (principal); R07.9 Chest pain, unspecified; R22.42 Localized swelling, mass and lump, left lower limb; I87.2 Venous insufficiency (chronic) (peripheral) | CPT/HCPCS: 93970 ==

== ENCOUNTER → 2024-12-06 08:15 | Outpatient (REF) | payer MEDICARE, OTHER, SELFPAY ==
[2024-12-06 10:52] LABS: ALT (SGPT) 25 U/L (0-50); AST (SGOT) 43 U/L (17-59); Albumin 4.1 g/dl (3.5-5.0); Alkaline Phosphatase 163 U/L (38-126); Blood Urea Nitrogen 23 mg/dl (9-20); Calcium 9.4 mg/dl (8.4-10.2); Carbon Dioxide 27 mmol/L (22-30); Chloride 107 mmol/L (98-107); Glucose 92 mg/dl (70-99); HDL Cholesterol 40 mg/dl; LDL Cholesterol, Calculated 81 mg/dl; Potassium 4.3 mmol/L (3.5-5.1); Sodium 139 mmol/L (135-145); Total Protein 6.7 g/dl (6.3-8.2); Very Low Density Lipoprotein 39 mg/dl (0-30); eGFR 56.23
[2024-12-06 11:28] LABS: TSH 3.61 uIU/ml (0.47-4.68)
== END ==
LOC: HWLAB 08:15
PROVIDERS: ATTENDING PHYSICIAN Internal Medicine; REFERRING PHYSICIAN Internal Medicine Gastroenterology
DX: E03.8 Other specified hypothyroidism (principal); I10 Essential (primary) hypertension; E78.49 Other hyperlipidemia
CPT/HCPCS: 36415; 80053; 80061; 84443

== ENCOUNTER → 2025-02-12 08:30 | Outpatient (REF) | payer MEDICARE, OTHER, SELFPAY | LOC: PAVMRI 08:30 | PROVIDERS: ATTENDING PHYSICIAN Nurse Practitioner; FAMILY PHYSICIAN Internal Medicine | DX: K74.69 Other cirrhosis of liver (principal); K86.3 Pseudocyst of pancreas | CPT/HCPCS: 74183; A9585 ==

== ENCOUNTER 2025-02-18 06:25 | Day surgery (SDC) | payer MEDICARE, OTHER, SELFPAY | END 2025-02-18 14:16 | disposition home or self-care (01) | LOC: GI 06:25 | PROVIDERS: ATTENDING PHYSICIAN Internal Medicine Gastroenterology | DX: Z12.11 Encounter for screening for malignant neoplasm of colon (principal); D12.2 Benign neoplasm of ascending colon; K57.30 Diverticulosis of large intestine without perforation or abscess without bleeding; K64.8 Other hemorrhoids; Z86.0100 Personal history of colon polyps, unspecified | CPT/HCPCS: 45385; 88305 ==

== ENCOUNTER → 2025-03-04 09:02 | Outpatient (REF) | payer MEDICARE, OTHER, SELFPAY ==
[2025-03-04 11:32] LABS: Hematocrit 37.8 % (39.0-52.0); Hemoglobin 12.8 g/dL (13.0-18.0); Mean Corp Hgb Conc. 33.9 g/dL (33.0-37.0); Mean Corpuscular Volume 97.2 fL (80.0-94.0); Nucleated Red Blood Cells % 0 % (-); Platelet Count 138 10^3/uL (130-400); Red Cell Dist. Width 14.4 % (11.5-14.5)
[2025-03-04 11:44] LABS: ALT (SGPT) 39 U/L (0-50); AST (SGOT) 54 U/L (17-59); Albumin 3.9 g/dl (3.5-5.0); Alkaline Phosphatase 187 U/L (38-126); Blood Urea Nitrogen 24 mg/dl (9-20); Calcium 9.3 mg/dl (8.4-10.2); Carbon Dioxide 26 mmol/L (22-30); Chloride 106 mmol/L (98-107); Glucose 91 mg/dl (70-99); Potassium 4.3 mmol/L (3.5-5.1); Sodium 137 mmol/L (135-145); Total Protein 6.6 g/dl (6.3-8.2); eGFR > 60.00
[2025-03-04 11:47] LABS: INR 1.03; PT 13.6 Sec (11.4-14.6)
[2025-03-04 11:48] LABS: APTT 31.7 Sec (23.4-35.0); Fibrinogen 370 MG/DL (199-459)
[2025-03-04 19:25] LABS: AFP Male/Tumor Marker 8.64 ng/ml
== END ==
LOC: HWLAB 09:02
PROVIDERS: ATTENDING PHYSICIAN Psychiatry & Neurology Neurology; FAMILY PHYSICIAN Internal Medicine; REFERRING PHYSICIAN Nurse Practitioner
DX: D68.32 Hemorrhagic disorder due to extrinsic circulating anticoagulants (principal); D69.6 Thrombocytopenia, unspecified; D68.8 Other specified coagulation defects; K74.69 Other cirrhosis of liver
CPT/HCPCS: 36415; 80048; 80076; 82105; 85025; 85384; 85610; 85730